=== PATIENT | male | born 1930 | race Caucasian/White ===

== ENCOUNTER 2017-12-20 15:23 | Inpatient (IN) | payer MEDICARE, OTHER ==
--- NOTE | 2017-12-20 16:46 | ED Physician Chart ---
ED Chief Complaint/HPI - Patient Information Date Seen:: 12/20/17 Time Seen:: 16:05 Chief Complaint:: anxiety agitation History of Present Illness:: 87 yr old male with anxiety increased agitation from a facility pt denies any complaints Allergies:: Allergies Allergy/AdvReac Type Severity Reaction Status Date / Time No Known Allergies Allergy Verified 12/20/17 16:01 Vitals:: Vital Signs - 8 hr 12/20/17 15:55 Temp 97.8 F HR 82 RR 16 BP 118/86 O2 Sat % 96 Historian:: Patient ED Review of Systems - Review of Systems General/Constitutional: No fever, No chills, No weight loss, No weakness, No diaphoresis, No edema, No loss of appetite Skin: No skin lesions, No rash, No bruising Head: No headache, No light-headedness Eyes: No loss of vision, No pain, No diplopia ENT: No earache, No nasal drainage, No sore throat, No tinnitus Neck: No neck pain, No swelling, No thyromegaly, No stiffness, No mass noted Cardio Vascular: No chest pain, No palpitations, No PND, No orthopnea, No edema Pulmonary: No SOB, No cough, No sputum, No wheezing GI: No nausea, No vomiting, No diarrhea, No pain, No melena, No hematochezia, No constipation, No hematemesis G/U: No dysuria, No frequency, No hematuria Musculoskeletal: No bone or joint pain, No back pain, No muscle pain Endocrine: No polyuria, No polydipsia Psychiatric: No prior psych history, No depression, Anxiety, No suicidal ideation Hematopoietic: No bruising, No lymphadenopathy Allergic/Immuno: No urticaria, No angioedema Neurological: No syncope, No focal symptoms, No weakness, No paresthesia, No headache, No seizure, No dizziness, No confusion, No vertigo ED Past Medical History - Past Medical History Past Medical History: No significant medical hx ED Physical Exam - Physical Examination General/Constitutional: Awake, Well-developed, well-nourished, Alert, No distress, GCS 15, Non-toxic appearing, Ambulatory Head: Atraumatic Eyes: Lids, conjuctiva normal, PERRL, EOMI Skin: Nl inspection, No rash, No skin lesions, No ecchymosis, Well hydrated, No lymphadenopathy ENMT: External ears, nose nl, Nasal exam nl, Lips, teeth, gums nl Neck: Nontender, Full ROM w/o pain, No JVD, No nuchal rigidity, No bruit, No mass, No stridor Respiratory: Nl effort/Exclusion, Clear to Auscultation, No Wheeze/Rhonchi/Rales Cardio Vascular: RRR, No murmur, gallop, rubs, NL S1 S2 GI: No tenderness/rebounding/guarding, No organomegaly, No hernia, Normal BS's, Nondistended, No mass/bruits, No McBurney tenderness : No CVA tenderness Extremities: No tenderness or effusion, Full ROM, normal strength in all extremities, No edema, Normal digits & nails Neuro/Psych: Alert/oriented, DTR's symmetric, Normal sensory exam, Normal motor strength, Judgement/insight normal, Mood normal, Normal gait, No focal deficits Misc: Normal back, No paraspinal tenderness ED Assessment - Assessment General Assessment: anxirty agitation ED Septic Shock - . Is Septic Shock (SBP<90, OR Lactate>4 mmol\L) present?: No - <6hrs of presentation: Vital Signs: Vital Signs - 8 hr 12/20/17 15:55 Temp 97.8 F HR 82 RR 16 BP 118/86 O2 Sat % 96 ED Reassessment (Disposition) - Diagnosis Diagnosis:: anxiety agitation - Patient Disposition Discharge/Transfer:: Acute Care w/in this hosp Condition at Disposition:: Stable
[2017-12-20 17:02] LABS: % MONOCYTES 6.7 % (2.0-10.0); % NEUTROPHILS 78.3 % (40.0-80.0); EOSINOPHILE ABSOLUTE 0.1 Th/cmm (0.1-0.4); HEMATOCRIT 38.7 % (41.0-60); HEMOGLOBIN 13.1 gm/dL (12-16); LYMPHOCYTE ABSOLUTE 0.9 Th/cmm (1.5-3.0); MEAN CELL VOLUME 95.6 fl (80-99); MEAN CORPUSCULAR HEMOGLOBIN 32.4 pg (27.0-31.0); MEAN CORPUSCULAR HGB CONC 33.9 pg (28.0-36.0); MEAN PLATELET VOLUME 6.4 fl; MONOCYTE ABSOLUTE 0.4 Th/cmm (0.3-1.0); NEUTROPHILE ABSOLUTE 5.1 Th/cmm (1.8-8.0); PLATELET COUNT 242 Th/cmm (150-400); RED BLOOD COUNT 4.05 Mil/cmm (3.80-5.80); RED CELL DISTRIBUTION WIDTH 14.3 % (11.5-20.0); WHITE BLOOD COUNT 6.5 Th/cmm (4.8-10.8)
[2017-12-20 17:18] LABS: ALB/GLOB RATIO 1.2 (1.0-1.8); ALBUMIN 3.7 gm/dL (4.2-5.5); ALKALINE PHOSPHATASE 70 U/L (34-104); BUN - UREA NITROGEN 21 mg/dL (7-25); CALCIUM SERUM 9.3 mg/dL (8.6-10.3); CARBON DIOXIDE 27.7 mEq/L (21.0-31.0); CHLORIDE 95 mEq/L (98-107); CREATININE - SERUM 1.1 mg/dL (0.7-1.3); GLUCOSE 102 mg/dL (70-105); POTASSIUM SERUM 3.7 mEq/L (3.5-5.1); SGOT 10 U/L (13-39); SGPT/ALT 5 U/L (7-52); SODIUM SERUM 132 mEq/L (136-145); TOTAL PROTEIN,SERUM 6.8 gm/dL (6.0-8.3)
[2017-12-20 17:41] LABS: URINE SOURCE CLEAN C
[2017-12-20 17:47] LABS: URINE BILIRUBIN NEGATIVE (NEGATIVE); URINE BLOOD NEGATIVE (NEGATIVE); URINE GLUCOSE (UA) NEGATIVE (NEGATIVE); URINE KETONE 15 mg/dL (NEGATIVE); URINE LEUKOCYTE ESTERASE SMALL (NEGATIVE); URINE MICROSCOPIC INDICATED? YES; URINE NITRATE POSITIVE (NEGATIVE); URINE PROTEIN NEGATIVE (NEGATIVE)
[2017-12-20 17:50] LABS: URINE CLARITY CLEAR (CLEAR); URINE COLOR YELLOW
[2017-12-20 17:57] LABS: URINE BACTERIA 1+ /hpf (NONE SEEN); URINE EPITHELIAL CELLS FEW /lpf (FEW); URINE RBC 0-2 /hpf (0-5)
[2017-12-20 18:15] LABS: AMPHETAMINE URINE NEGATIVE (NEGATIVE)
[2017-12-20 18:16] LABS: BARBITURATES URINE NEGATIVE (NEGATIVE); BENZODIAZEPINES QUAL URINE NEGATIVE (NEGATIVE); CANNABINOID THC NEGATIVE (NEGATIVE); COCAINE METABOLITE QUAL URINE NEGATIVE (NEGATIVE); METHADONE URINE NEGATIVE (NEGATIVE); METHAMPHETAMINES QUAL URINE NEGATIVE (NEGATIVE); OPIATES (MORPHINE) QUAL. URINE NEGATIVE (NEGATIVE); PHENCYCLIDINE (PCP) URINE NEGATIVE (NEGATIVE); TRICYCLICS (TCA) QUAL. URINE NEGATIVE (NEGATIVE)
[2017-12-20] MEDS ORDERED: Sodium Chloride 0.9% 1,000 ML IV ONE (19:34)
[2017-12-20] MEDS ORDERED: cefTRIAXone 2 GM in Sodium Chloride 0.9% 100 ML IV ONE (19:38)
[2017-12-20] MEDS ORDERED: Maalox 30 mL Cup PO PRN (23:48)
[2017-12-20] MEDS ORDERED: Magnesium Hydroxide (MOM) 30 mL UDC PO PRN (23:48)
[2017-12-20] MEDS ORDERED: Hydrocodone/APAP 5mg/325mg Tab PO PRN (23:54)
[2017-12-20 23:59] VITALS: BP 144/75
[2017-12-21] MEDS ORDERED: Non-Formulary Item 1 EA (Multivitamin [Multi-Vitamin Daily] 1 TAB) PO SCH (09:00)
--- NOTE | 2017-12-21 10:02 | History & Physical ---
ADMIT DATE: 12/21/2017 CHIEF COMPLAINT: Agitation. HISTORY OF PRESENT ILLNESS: This is an 87-year-old male who was admitted from a [facility] facility to the [facility] due to increase in agitation. REVIEW OF SYSTEMS: GENERAL: This is an 87-year-old male that appears as stated. Denies weight loss. Denies weakness. HEAD: Denies headache. Denies dizziness. EYES: Denies eye pain. Denies blurring of vision. NECK: Denies neck pain. Denies nuchal rigidity. CHEST: Denies chest pain. Denies palpitation. PULMONARY: Denies shortness of breath. Denies coughing. GASTROINTESTINAL: Denies abdominal pain. Denies diarrhea. Denies constipation. MUSCULOSKELETAL: Denies joint pain. Denies muscle pain. SOCIAL HISTORY: The patient lives in a [facility] facility prior to hospitalization. FAMILY HISTORY: Unremarkable. PAST SURGICAL HISTORY: Unremarkable. PAST MEDICAL HISTORY: Includes osteoarthritis, gastroesophageal reflux disease, iron deficiency anemia, hypertension, and osteoarthritis. PSYCHIATRIC HISTORY: Includes dementia. PHYSICAL EXAMINATION: VITAL SIGNS: Temperature 97.6, heart rate of 80, blood pressure 129/71, respirations of 19, and 98% on room air. HEENT: Head is atraumatic, normocephalic. Eyes: Bilateral conjunctivae are clear. Bilateral pupils are equally round and reactive. NECK: Supple. No JVD. CARDIOVASCULAR: S1 and S2, without murmur. PULMONARY: Clear to auscultation. GASTROINTESTINAL: Soft and nontender without guarding. Positive bowel sounds. MUSCULOSKELETAL: No clubbing. No cyanosis noted. ASSESSMENT: 1. Dementia. 2. Hypertension. 3. Gastroesophageal reflux disease. 4. Iron-deficiency anemia. PLAN: We will admit the patient to senior mental health unit. We will do medication reconciliation accordingly. We will follow up with the psychiatrist to monitor the patient's condition and behavior. Treatment plans were discussed with the patient's nurse. Treatment plans were discussed with Dr. March. JOB# [id number]
[2017-12-21] MEDS: Ferrous Sulfate 325 MG TAB PO SCH (10:09)
[2017-12-21] MEDS: Multivitamin Tab PO SCH (10:10)
--- NOTE | 2017-12-21 10:45 | Psychiatric Evaluation ---
DATE OF SERVICE: 12/20/2017 PSYCHIATRIC EVALUATION AND MENTAL STATUS EXAMINATION IDENTIFYING DATA: The patient is an 87-year-old male resident of [facility]. Information obtained by directly interviewing the patient as well as reviewing the admission papers and they are reliable. JUSTIFICATION OF HOSPITALIZATION: The patient is admitted here on a voluntary basis in view of his acute agitation, confusion, and disruptive behavior. CHIEF COMPLAINT: "I am the chosen one." HISTORY OF PRESENT ILLNESS: This is the first psychiatric hospitalization to [facility] for this patient who is reported to have been very agitated, confused, and disrupting. The patient has been referred here from the [facility] for stabilization. Review of the chart indicated that the patient has been diagnosed to have the weakness of the muscles, hypoosmolality, and hyponatremia at one time and the patient is getting easily agitated and hence the patient has been referred over here. I did the interview the patient. 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 The patient's insight is noted to be very limited. Sleep and appetite prior to the hospitalization are very poor. PAST PSYCHIATRIC HISTORY: The patient denies any prior psychiatric hospitalizations or treatments. MEDICAL HISTORY: Physical examination is requested by Dr. Joaquim Torre. LEGAL PROBLEMS: None at this time. STRENGTH AND ASSETS: The patient is motivated. MENTAL STATUS EXAMINATION: The patient is an 87-year-old, looking his stated age, cooperative. Eye contact is fair. Mood is noted to be elated. Affect is labile. Insight and judgment at this time are noted to be impaired. Impulse control seems to be limited. Coping skills are noted to be limited. The patient has been having difficult time to cope with the stress. Attention span and concentration are noted to be poor. Short term and terminal make up operator memory appeared to be fair, but the patient has been presenting with grandiose delusions and going off on a tangent. DIAGNOSTIC IMPRESSION: AXIS I: A. Psychosis, not otherwise specified. B. Rule out bipolar disorder. C. Dementia and behavioral change secondary to dementia. AXIS II: None. AXIS III: As per Dr. March. IMMEDIATE TREATMENT PLAN: The patient is going to be observed on inpatient unit, provided with supportive psychotherapy. The patient is going to be closely monitored and encouraged to verbalize the concerns rather than to act out. The patient is going to be discontinued off of the Lexapro gradually and the patient is going to be placed on the Seroquel 12.5 mg, which is going to be gradually increased. ESTIMATED LENGTH OF STAY: 3-5 days. DISCHARGE CRITERIA: When he no longer a threat to self or others and be able to cope up with the stress. [facility]# [id number]
[2017-12-22] MEDS: Multivitamin Tab PO SCH (09:17)
[2017-12-22] MEDS: Ferrous Sulfate 325 MG TAB PO SCH (09:17)
--- NOTE | 2017-12-22 16:40 | Progress Notes ---
DATE: 12/22/2017 SUBJECTIVE: Staff was spoken to. The patient is interviewed. Mood is noted to be irritable. Affect is constricted. Insight and judgment are impaired. Impulse control is noted to be poor. The patient is refusing to comply with the medications. The patient has been very demanding and insight is noted to be very limited. ASSESSMENT: The patient is still impulsive and psychotic. PLAN: To continue the patient with the supportive therapy, encouraged the patient to verbalize the concerns rather than to act out. [facility]# [id number]
--- NOTE | 2017-12-23 16:03 | General Progress Note ---
Subjective - Review of Systems Events since last encounter: awake in no distress Objective - Results Result Diagrams: 12/20/17 16:53 12/20/17 16:53 Recent Labs: Laboratory Last Values WBC 6.5 Th/cmm (4.8-10.8) 12/20/17 16:53 RBC 4.05 Mil/cmm (3.80-5.80) 12/20/17 16:53 Hgb 13.1 gm/dL (12-16) 12/20/17 16:53 Hct 38.7 % (41.0-60) L 12/20/17 16:53 MCV 95.6 fl (80-99) 12/20/17 16:53 MCH 32.4 pg (27.0-31.0) H 12/20/17 16:53 MCHC Differential 33.9 pg (28.0-36.0) 12/20/17 16:53 RDW 14.3 % (11.5-20.0) 12/20/17 16:53 Plt Count 242 Th/cmm (150-400) 12/20/17 16:53 MPV 6.4 fl 12/20/17 16:53 Neutrophils % 78.3 % (40.0-80.0) 12/20/17 16:53 Lymphocytes % 14.0 % (20.0-50.0) L 12/20/17 16:53 Monocytes % 6.7 % (2.0-10.0) 12/20/17 16:53 Eosinophils % 1.0 % (0.0-5.0) 12/20/17 16:53 Basophils % 0.0 % (0.0-2.0) 12/20/17 16:53 Sodium 132 mEq/L (136-145) L 12/20/17 16:53 Potassium 3.7 mEq/L (3.5-5.1) 12/20/17 16:53 Chloride 95 mEq/L (98-107) L 12/20/17 16:53 Carbon Dioxide 27.7 mEq/L (21.0-31.0) 12/20/17 16:53 Anion Gap 13.0 (7.0-16.0) 12/20/17 16:53 BUN 21 mg/dL (7-25) 12/20/17 16:53 Creatinine 1.1 mg/dL (0.7-1.3) 12/20/17 16:53 Est GFR ( Amer) TNP 12/20/17 16:53 Est GFR (Non-Af Amer) TNP 12/20/17 16:53 BUN/Creatinine Ratio 19.1 12/20/17 16:53 Glucose 102 mg/dL (70-105) 12/20/17 16:53 Calcium 9.3 mg/dL (8.6-10.3) 12/20/17 16:53 Total Bilirubin 1.0 mg/dL (0.3-1.0) 12/20/17 16:53 AST 10 U/L (13-39) L 12/20/17 16:53 ALT 5 U/L (7-52) L 12/20/17 16:53 Alkaline Phosphatase 70 U/L (34-104) 12/20/17 16:53 Total Protein 6.8 gm/dL (6.0-8.3) 12/20/17 16:53 Albumin 3.7 gm/dL (4.2-5.5) L 12/20/17 16:53 Globulin 3.1 gm/dL 12/20/17 16:53 Albumin/Globulin Ratio 1.2 (1.0-1.8) 12/20/17 16:53 Urine Source CLEAN C 12/20/17 17:20 Urine Color YELLOW 12/20/17 17:20 Urine Clarity CLEAR (CLEAR) 12/20/17 17:20 Urine pH 6.0 (4.6 - 8.0) 12/20/17 17:20 Ur Specific [place] 1.025 (1.005-1.030) 12/20/17 17:20 Urine Protein NEGATIVE mg/dL (NEGATIVE) 12/20/17 17:20 Urine Glucose (UA) NEGATIVE mg/dL (NEGATIVE) 12/20/17 17:20 Urine Ketones 15 mg/dL (NEGATIVE) H 12/20/17 17:20 Urine Blood NEGATIVE (NEGATIVE) 12/20/17 17:20 Urine Nitrate POSITIVE (NEGATIVE) H 12/20/17 17:20 Urine Bilirubin NEGATIVE (NEGATIVE) 12/20/17 17:20 Urine Urobilinogen 2.0 E.U./dL (0.2 - 1.0) 12/20/17 17:20 Ur Leukocyte Esterase SMALL (NEGATIVE) H 12/20/17 17:20 Urine RBC 0-2 /hpf (0-5) H 12/20/17 17:20 Urine WBC 6-10 /hpf (0-5) 12/20/17 17:20 Ur Epithelial Cells FEW /lpf (FEW) 12/20/17 17:20 Urine Bacteria 1+ /hpf (NONE SEEN) H 12/20/17 17:20 Urine Mucus FEW /lpf (FEW) 12/20/17 17:20 Urine Opiates Screen NEGATIVE (NEGATIVE) 12/20/17 17:20 Urine Methadone Screen NEGATIVE (NEGATIVE) 12/20/17 17:20 Ur Barbiturates Screen NEGATIVE (NEGATIVE) 12/20/17 17:20 Ur Tricyclics Screen NEGATIVE (NEGATIVE) 12/20/17 17:20 Ur Phencyclidine Scrn NEGATIVE (NEGATIVE) 12/20/17 17:20 Amphetamines Screen NEGATIVE (NEGATIVE) 12/20/17 17:20 U Methamphetamines Scrn NEGATIVE (NEGATIVE) 12/20/17 17:20 U Benzodiazepines Scrn NEGATIVE (NEGATIVE) 12/20/17 17:20 U Cocaine Metab Screen NEGATIVE (NEGATIVE) 12/20/17 17:20 U Cannabinoids Screen NEGATIVE (NEGATIVE) 12/20/17 17:20 - Physical Exam Vitals and I&O: Vital Signs Temp 97.2 F 12/23/17 15:19 Pulse 73 12/23/17 15:19 Resp 20 12/23/17 15:19 BP 104/65 12/23/17 15:19 Pulse Ox 97 12/23/17 15:19 Intake & Output 12/22/17 12/23/17 12/23/17 18:59 06:59 18:59 Intake Total 1750 Balance 1750 Intake: Oral 1750 Other: # Voids 3 # Bowel Movements 1 Active Medications: Current Medications Acetaminophen (Tylenol) 650 mg PO Q4HR PRN PRN Reason: Mild Pain / Temp above 100 Stop: 02/18/18 23:47 Acetaminophen/Hydrocodone Bitart ([place] 5mg/325mg) 1 tab PO Q6H PRN PRN Reason: Pain (Moderate) Stop: 02/18/18 23:53 Al Hydrox/Mg Hydrox/Simethicone (Maalox) 30 ml PO Q4HR PRN PRN Reason: GI DISTRESS Stop: 02/18/18 23:47 Aspirin (Ecotrin) 81 mg PO DAILY [facility] Stop: 02/19/18 08:59 Last Admin: 12/22/17 09:16 Dose: Not Given Bisacodyl (Dulcolax 10 Mg Supp) 10 mg RC Q72HR PRN PRN Reason: Constipation Stop: 02/18/18 23:53 Docusate Sodium (Colace) 250 mg PO DAILY [facility] Stop: 02/19/18 08:59 Last Admin: 12/22/17 09:17 Dose: Not Given Donepezil HCl (Aricept) 10 mg PO HS [facility] Stop: 02/19/18 20:59 Last Admin: 12/22/17 21:07 Dose: 10 mg Escitalopram Oxalate (Lexapro) 5 mg PO DAILY [facility]; Protocol Stop: 02/19/18 08:59 Last Admin: 12/22/17 09:17 Dose: Not Given Famotidine (Pepcid) 40 mg PO QAM [facility] Stop: 02/19/18 08:59 Last Admin: 12/22/17 09:17 Dose: Not Given Ferrous Sulfate (Iron) 325 mg PO DAILY [facility] Stop: 02/19/18 08:59 Last Admin: 12/22/17 09:17 Dose: Not Given Hydrochlorothiazide (Hctz) 25 mg PO QAM [facility] Stop: 02/19/18 08:59 Last Admin: 12/22/17 09:17 Dose: Not Given Lorazepam (Ativan) 0.5 mg PO Q4HR PRN; Protocol PRN Reason: Anxiety Stop: 01/19/18 23:47 Last Admin: 12/22/17 21:22 Dose: 0.5 mg Magnesium Hydroxide (Milk Of Magnesia) 30 ml PO HS PRN PRN Reason: Constipation Memantine (Namenda) 10 mg PO BID [facility] Stop: 02/19/18 08:59 Last Admin: 12/22/17 18:01 Dose: Not Given Multivitamins/Vitamin C (Theragran) 1 tab PO DAILY [facility] Stop: 02/19/18 08:59 Last Admin: 12/22/17 09:17 Dose: Not Given Quetiapine Fumarate (Seroquel) 25 mg PO BID [facility]; Protocol Stop: 02/19/18 08:59 Last Admin: 12/22/17 18:01 Dose: Not Given Trazodone HCl (Desyrel) 25 mg PO HS [facility]ARITZA; Protocol Stop: 02/19/18 20:59 Last Admin: 12/22/17 21:07 Dose: 25 mg Zolpidem Tartrate (Ambien) 5 mg PO HS PRN PRN Reason: Insomnia Stop: 02/18/18 23:47
--- NOTE | 2017-12-23 21:12 | Consultation ---
DATE OF CONSULTATION: 12/23/2017 REFERRING PHYSICIAN: Kathrine Moore MD. TYPE OF CONSULTATION: Psychology. HISTORY OF PRESENT ILLNESS: The patient is an 87-year-old male. The patient is a resident of [facility]. The following is by review of the medical record and by patient self-report. The patient is being admitted due to acute agitation, confusion and disruptive behavior. The staff at the patient's facility report that he had become very agitated, confused, and disruptive towards the staff as well as other residents. The patient presents as being confused but verbally assertive. 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 The patient went on to state that he speaks 6 different languages. The patient seemed to perseverate on grandiose type of thoughts and was cognitively un-redirectable at times due to this perseveration. However, the patient was willing to continue with the clinical interview. The patient denied any suicidal ideation, plan or intention. PAST MEDICAL HISTORY: Please see history and physical by Dr. March. PAST PSYCHIATRIC HISTORY: The record indicates no prior psychiatric hospitalizations or treatments. Complete information is unavailable at the time of this clinical interview. SUBSTANCE ABUSE HISTORY: The patient denied any history. PSYCHOSOCIAL HISTORY: The patient is a resident of [facility]. The patient stated no specific buddhism affiliation. 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 The patient was not specific as to what type of medicine he practiced. The patient states that he completed college as well as post-graduate work. The patient stated that he has a relationship with the [place] and he is a devout [employer]. The patient denied any history of physical or sexual abuse. The patient denied any current legal problems. The patient reported no family support. MENTAL STATUS EXAMINATION: The patient appears to be his stated age. The patient's attitude is superficially cooperative. Eye contact is fair. Speech is spontaneous. Mood is stable, but labile at times; there seems to be mood fluctuations. Affect is animated. Thought process seems to be tangential at times. The patient denied any auditory or visual hallucinations. The patient denies any suicidal ideation, plan or intention. There are possible delusions present i.e., grandiose type. This needs further evaluation. The patient's behavior presents as entitled and demanding towards staff according to the nursing staff on the unit. Impulse control is limited. Concentration is fair to poor. The patient was able to repeat 3 items given to him the first time. The patient was able to recall 2/3 items after several minutes. Immediate and short term memory seemed to be fair; long-term memory needs further evaluation. The patient's sensorium is alert and oriented x 3. The patient did not participate in the interpretation of proverbs by choice. Insight is poor. Judgment is poor. DIAGNOSTIC IMPRESSION: AXIS I: 1. Psychosis, not otherwise specified. 2. Rule out bipolar disorder. 3. Dementia with behavioral disturbance. AXIS II: Deferred. AXIS III: Per Dr. March. TREATMENT PLAN: The patient has been seen by Dr. Moore for psychiatric evaluation and for the management of the patient's psychotropic medications. We will provide supportive psychotherapy to include reality orientation, reality differentiation and reality integration. We will provide coping strategies for phase of life issues. We will provide motivational enhancement for the patient to become compliant and stay compliant with all aspects of his care and treatment. We will encourage the patient to be able to verbally contract for safety including no harm to others. We will encourage the patient to be able to demonstrate emotional and self-regulation prior to discharge. We will provide stress management skills to increase the patient's frustration tolerance. According to the admitting Psychiatrist, the patient is being discontinued off of Lexapro gradually and will be placed on Seroquel. Thank you Dr. Moore for this consult and the opportunity to participate with you in this patient's care. JOB# [id number]
--- NOTE | 2017-12-24 02:35 | Progress Notes ---
DATE: 12/23/2017 PSYCHIATRIC PROGRESS NOTE SUBJECTIVE: Staff was spoken to. The patient is interviewed. Mood is noted to be irritable. Affect is constricted. Insight and judgment are noted to be still impaired. Impulse control is noted to be limited. 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 The patient's coping skills at this time are noted to be impaired. Impulse control is noted to be very poor. Coping skills are noted to be poor. The patient has been having difficult time to cope with the stress and the patient is going on a tangent. The patient is currently on trazodone, Ambien, and Seroquel and decided to discontinue the trazodone tonight and continue the patient with Seroquel and Ambien and follow up with the supportive therapy. ASSESSMENT: The patient is still psychotic and impulsive. PLAN: To continue the patient with the supportive therapy and follow. JOB# [id number]
[2017-12-24] MEDS: Ferrous Sulfate 325 MG TAB PO SCH ×2 (08:23→19:29)
[2017-12-24] MEDS: Multivitamin Tab PO SCH ×2 (08:25→19:31)
--- NOTE | 2017-12-25 01:03 | Progress Notes ---
DATE: 12/24/2017 PSYCHIATRIC PROGRESS NOTE SUBJECTIVE: Staff was spoken to. The patient is interviewed. Mood is noted to be irritable. Affect is constricted. Coping skills are noted to be still poor. The patient has grandiose delusions. The patient is talking about the languages that he speaks and the things that he needs to do in the [place]. The patient has no insight into his illness. ASSESSMENT: The patient is still grossly psychotic. PLAN: To continue the patient with supportive therapy. I encouraged the patient to verbalize the concerns rather than to act out. The patient is reluctantly willing to accept the medications. JOB# [id number]
--- NOTE | 2017-12-25 09:02 | General Progress Note ---
Subjective - Review of Systems Events since last encounter: patient still psychotic no fever Objective - Results Result Diagrams: 12/20/17 16:53 12/20/17 16:53 Recent Labs: Laboratory Last Values WBC 6.5 Th/cmm (4.8-10.8) 12/20/17 16:53 RBC 4.05 Mil/cmm (3.80-5.80) 12/20/17 16:53 Hgb 13.1 gm/dL (12-16) 12/20/17 16:53 Hct 38.7 % (41.0-60) L 12/20/17 16:53 MCV 95.6 fl (80-99) 12/20/17 16:53 MCH 32.4 pg (27.0-31.0) H 12/20/17 16:53 MCHC Differential 33.9 pg (28.0-36.0) 12/20/17 16:53 RDW 14.3 % (11.5-20.0) 12/20/17 16:53 Plt Count 242 Th/cmm (150-400) 12/20/17 16:53 MPV 6.4 fl 12/20/17 16:53 Neutrophils % 78.3 % (40.0-80.0) 12/20/17 16:53 Lymphocytes % 14.0 % (20.0-50.0) L 12/20/17 16:53 Monocytes % 6.7 % (2.0-10.0) 12/20/17 16:53 Eosinophils % 1.0 % (0.0-5.0) 12/20/17 16:53 Basophils % 0.0 % (0.0-2.0) 12/20/17 16:53 Sodium 132 mEq/L (136-145) L 12/20/17 16:53 Potassium 3.7 mEq/L (3.5-5.1) 12/20/17 16:53 Chloride 95 mEq/L (98-107) L 12/20/17 16:53 Carbon Dioxide 27.7 mEq/L (21.0-31.0) 12/20/17 16:53 Anion Gap 13.0 (7.0-16.0) 12/20/17 16:53 BUN 21 mg/dL (7-25) 12/20/17 16:53 Creatinine 1.1 mg/dL (0.7-1.3) 12/20/17 16:53 Est GFR ( Amer) TNP 12/20/17 16:53 Est GFR (Non-Af Amer) TNP 12/20/17 16:53 BUN/Creatinine Ratio 19.1 12/20/17 16:53 Glucose 102 mg/dL (70-105) 12/20/17 16:53 Calcium 9.3 mg/dL (8.6-10.3) 12/20/17 16:53 Total Bilirubin 1.0 mg/dL (0.3-1.0) 12/20/17 16:53 AST 10 U/L (13-39) L 12/20/17 16:53 ALT 5 U/L (7-52) L 12/20/17 16:53 Alkaline Phosphatase 70 U/L (34-104) 12/20/17 16:53 Total Protein 6.8 gm/dL (6.0-8.3) 12/20/17 16:53 Albumin 3.7 gm/dL (4.2-5.5) L 12/20/17 16:53 Globulin 3.1 gm/dL 12/20/17 16:53 Albumin/Globulin Ratio 1.2 (1.0-1.8) 12/20/17 16:53 Urine Source CLEAN C 12/20/17 17:20 Urine Color YELLOW 12/20/17 17:20 Urine Clarity CLEAR (CLEAR) 12/20/17 17:20 Urine pH 6.0 (4.6 - 8.0) 12/20/17 17:20 Ur Specific [place] 1.025 (1.005-1.030) 12/20/17 17:20 Urine Protein NEGATIVE mg/dL (NEGATIVE) 12/20/17 17:20 Urine Glucose (UA) NEGATIVE mg/dL (NEGATIVE) 12/20/17 17:20 Urine Ketones 15 mg/dL (NEGATIVE) H 12/20/17 17:20 Urine Blood NEGATIVE (NEGATIVE) 12/20/17 17:20 Urine Nitrate POSITIVE (NEGATIVE) H 12/20/17 17:20 Urine Bilirubin NEGATIVE (NEGATIVE) 12/20/17 17:20 Urine Urobilinogen 2.0 E.U./dL (0.2 - 1.0) 12/20/17 17:20 Ur Leukocyte Esterase SMALL (NEGATIVE) H 12/20/17 17:20 Urine RBC 0-2 /hpf (0-5) H 12/20/17 17:20 Urine WBC 6-10 /hpf (0-5) 12/20/17 17:20 Ur Epithelial Cells FEW /lpf (FEW) 12/20/17 17:20 Urine Bacteria 1+ /hpf (NONE SEEN) H 12/20/17 17:20 Urine Mucus FEW /lpf (FEW) 12/20/17 17:20 Urine Opiates Screen NEGATIVE (NEGATIVE) 12/20/17 17:20 Urine Methadone Screen NEGATIVE (NEGATIVE) 12/20/17 17:20 Ur Barbiturates Screen NEGATIVE (NEGATIVE) 12/20/17 17:20 Ur Tricyclics Screen NEGATIVE (NEGATIVE) 12/20/17 17:20 Ur Phencyclidine Scrn NEGATIVE (NEGATIVE) 12/20/17 17:20 Amphetamines Screen NEGATIVE (NEGATIVE) 12/20/17 17:20 U Methamphetamines Scrn NEGATIVE (NEGATIVE) 12/20/17 17:20 U Benzodiazepines Scrn NEGATIVE (NEGATIVE) 12/20/17 17:20 U Cocaine Metab Screen NEGATIVE (NEGATIVE) 12/20/17 17:20 U Cannabinoids Screen NEGATIVE (NEGATIVE) 12/20/17 17:20 - Physical Exam Vitals and I&O: Vital Signs Temp 97.8 F 12/25/17 05:01 Pulse 61 12/25/17 05:01 Resp 19 12/25/17 05:01 BP 120/74 12/25/17 05:01 Pulse Ox 98 12/25/17 05:01 Intake & Output 12/24/17 12/25/17 12/25/17 18:59 06:59 18:59 Intake Total 500 Balance 500 Intake: Oral 500 Other: # Voids 2 # Bowel Movements 1 Active Medications: Current Medications Acetaminophen (Tylenol) 650 mg PO Q4HR PRN PRN Reason: Mild Pain / Temp above 100 Stop: 02/18/18 23:47 Acetaminophen/Hydrocodone Bitart ([place] 5mg/325mg) 1 tab PO Q6H PRN PRN Reason: Pain (Moderate) Stop: 02/18/18 23:53 Al Hydrox/Mg Hydrox/Simethicone (Maalox) 30 ml PO Q4HR PRN PRN Reason: GI DISTRESS Stop: 02/18/18 23:47 Aspirin (Ecotrin) 81 mg PO DAILY COUNT INCLUDES [facility] Stop: 02/19/18 08:59 Last Admin: 12/24/17 19:28 Dose: Not Given Bisacodyl (Dulcolax 10 Mg Supp) 10 mg RC Q72HR PRN PRN Reason: Constipation Stop: 02/18/18 23:53 Docusate Sodium (Colace) 250 mg PO DAILY COUNT [facility]CLUDES [facility] Stop: 02/19/18 08:59 Last Admin: 12/24/17 19:28 Dose: Not Given Donepezil HCl (Aricept) 10 mg PO HS COUNT INCLUDES [facility] Stop: 02/19/18 20:59 Last Admin: 12/24/17 21:24 Dose: Not Given Escitalopram Oxalate (Lexapro) 5 mg PO DAILY COUNT [facility]CLUDES THE [facility]; Protocol Stop: 02/19/18 08:59 Last Admin: 12/24/17 19:29 Dose: Not Given Famotidine (Pepcid) 40 mg PO QAM COUNT INCLUDES THE [facility] Stop: 02/19/18 08:59 Last Admin: 12/24/17 19:29 Dose: Not Given Ferrous Sulfate (Iron) 325 mg PO DAILY COUNT [facility]CLUDES [facility] Stop: 02/19/18 08:59 Last Admin: 12/24/17 19:29 Dose: Not Given Hydrochlorothiazide (Hctz) 25 mg PO QAM COUNT [facility]CLUDES [facility] Stop: 02/19/18 08:59 Last Admin: 12/24/17 19:30 Dose: Not Given Lorazepam (Ativan) 0.5 mg PO Q4HR PRN; Protocol PRN Reason: Anxiety Stop: 01/19/18 23:47 Last Admin: 12/22/17 21:22 Dose: 0.5 mg Magnesium Hydroxide (Milk Of Magnesia) 30 ml PO HS PRN PRN Reason: Constipation Memantine (Namenda) 10 mg PO BID COUNT [facility]CLUDES [facility] Stop: 02/19/18 08:59 Last Admin: 12/24/17 19:30 Dose: Not Given Multivitamins/Vitamin C (Theragran) 1 tab PO DAILY COUNT INCLUDES THE [facility] Stop: 02/19/18 08:59 Last Admin: 12/24/17 19:31 Dose: Not Given Quetiapine Fumarate (Seroquel) 25 mg PO BID COUNT [facility]CLUDES THE [facility]; Protocol Stop: 02/19/18 08:59 Last Admin: 12/24/17 19:28 Dose: Not Given Zolpidem Tartrate (Ambien) 5 mg PO HS PRN PRN Reason: Insomnia Stop: 02/18/18 23:47 Nutritional Asmnt/Malnutr-PDOC - Dietary Evaluation Malnutrition Findings (Please click <Entered> for more info): Nutritional Asmnt/Malnutrition Start: 12/24/17 15: 09 Text: Status: Complete Freq: Protocol: Document 12/24/17 15:09 LCHENG (Rec: 12/24/17 15:15 [email or web address] [id number]) Nutritional Asmnt/Malnutrition Patient General Information Nutritional Screening Moderate Risk Diagnosis psychosis NOS Pertinent Medical Hx/Surgical Hx OA, GERD, iron deficiency anemia, HTN Subjective Information Pt seen sleeping in bed at time of visit. Per EMR, PO intake 50-75%. Current Diet Order/ Nutrition Support regular, ayse finely chopped Pertinent Medications coace, pepcid, iron, theragran , seroquel Pertinent Labs 12/20 Na 132, Cl 95, Alb 3.7 Nutritional Hx/Data Height 1.8 m Height (Calculated Centimeters) 180.3 Current Weight (lbs) 83.915 kg Weight (Calculated Kilograms) 83.9 Weight (Calculated Grams) 19574.6 [place] Body Weight 172 Body Mass Index (BMI) 25.7 GI Symptoms GI Symptoms None Last BM 12/22 Difficult in: None Skin Integrity/Comment: intact Current %PO Fair (50-74%) Estimated Nutritional Goals Calories/Kcals/Kg 23-27 Kcals Calculated 9655-3561 Protein g/k.8 Protein Calculated 67 Fluid: ml 1932-2268ml (1ml/kcal) Nutritional Problem 1. Problem Problem altered nutrition related labs Etiology electrolytes imbalance Signs/Symptoms: Na 132, Cl 95 Malnutrition Alert Is there a minimum of two criteria No selected? Query Text:Check all the applicable criteria. A minimum of two criteria are recommended for diagnosis of either severe or non-severe malnutrition. Malnutrition Related to Morbid Obesity Malnutrition related to morbid obesity No Intervention/Recommendation Comments 1. Continue with current diet as ordered. Assist pt with meals as needed and encourage oral intake. 2. Monitor PO intake, wt, labs and skin integrity 3. F/U as low risk in 7 days, 12/31, PO check 12/27 Expected Outcomes/Goals Expected Outcomes/Goals 1. PO intake to meet at least 75% of nutritional needs. 2. Wt stability, skin to remain intact, labs to approach WNL.
[2017-12-25] MEDS: Ferrous Sulfate 325 MG TAB PO SCH (09:12)
[2017-12-25] MEDS: Multivitamin Tab PO SCH (09:12)
--- NOTE | 2017-12-26 01:58 | Progress Notes ---
DATE: 12/25/2017 SUBJECTIVE: Staff was spoken to. The patient is interviewed. Mood is noted to be irritable. Affect is constricted. Insight and judgment at this time are noted to be impaired. Impulse control is noted to be limited. Coping skills are noted to be limited. The patient has been having difficult time to cope with the stress. The patient is currently on 25 mg twice a day of the Seroquel and has been able to tolerate. No side effects to the medications are noted at this time. ASSESSMENT: The patient is still grossly psychotic and impulsive and has been displaying grandiose delusions. PLAN: To continue the patient with the supportive therapy and followup. JOB# [id number]
[2017-12-26] MEDS: Multivitamin Tab PO SCH (09:15)
[2017-12-26] MEDS: Ferrous Sulfate 325 MG TAB PO SCH (09:15)
--- NOTE | 2017-12-26 15:53 | General Progress Note ---
Subjective - Review of Systems Subjective: patient is agitated, NAD Objective - Results Result Diagrams: 12/20/17 16:53 12/20/17 16:53 Recent Labs: Laboratory Last Values WBC 6.5 Th/cmm (4.8-10.8) 12/20/17 16:53 RBC 4.05 Mil/cmm (3.80-5.80) 12/20/17 16:53 Hgb 13.1 gm/dL (12-16) 12/20/17 16:53 Hct 38.7 % (41.0-60) L 12/20/17 16:53 MCV 95.6 fl (80-99) 12/20/17 16:53 MCH 32.4 pg (27.0-31.0) H 12/20/17 16:53 MCHC Differential 33.9 pg (28.0-36.0) 12/20/17 16:53 RDW 14.3 % (11.5-20.0) 12/20/17 16:53 Plt Count 242 Th/cmm (150-400) 12/20/17 16:53 MPV 6.4 fl 12/20/17 16:53 Neutrophils % 78.3 % (40.0-80.0) 12/20/17 16:53 Lymphocytes % 14.0 % (20.0-50.0) L 12/20/17 16:53 Monocytes % 6.7 % (2.0-10.0) 12/20/17 16:53 Eosinophils % 1.0 % (0.0-5.0) 12/20/17 16:53 Basophils % 0.0 % (0.0-2.0) 12/20/17 16:53 Sodium 132 mEq/L (136-145) L 12/20/17 16:53 Potassium 3.7 mEq/L (3.5-5.1) 12/20/17 16:53 Chloride 95 mEq/L (98-107) L 12/20/17 16:53 Carbon Dioxide 27.7 mEq/L (21.0-31.0) 12/20/17 16:53 Anion Gap 13.0 (7.0-16.0) 12/20/17 16:53 BUN 21 mg/dL (7-25) 12/20/17 16:53 Creatinine 1.1 mg/dL (0.7-1.3) 12/20/17 16:53 Est GFR ( Amer) TNP 12/20/17 16:53 Est GFR (Non-Af Amer) TNP 12/20/17 16:53 BUN/Creatinine Ratio 19.1 12/20/17 16:53 Glucose 102 mg/dL (70-105) 12/20/17 16:53 Calcium 9.3 mg/dL (8.6-10.3) 12/20/17 16:53 Total Bilirubin 1.0 mg/dL (0.3-1.0) 12/20/17 16:53 AST 10 U/L (13-39) L 12/20/17 16:53 ALT 5 U/L (7-52) L 12/20/17 16:53 Alkaline Phosphatase 70 U/L (34-104) 12/20/17 16:53 Total Protein 6.8 gm/dL (6.0-8.3) 12/20/17 16:53 Albumin 3.7 gm/dL (4.2-5.5) L 12/20/17 16:53 Globulin 3.1 gm/dL 12/20/17 16:53 Albumin/Globulin Ratio 1.2 (1.0-1.8) 12/20/17 16:53 Urine Source CLEAN C 12/20/17 17:20 Urine Color YELLOW 12/20/17 17:20 Urine Clarity CLEAR (CLEAR) 12/20/17 17:20 Urine pH 6.0 (4.6 - 8.0) 12/20/17 17:20 Ur Specific [place] 1.025 (1.005-1.030) 12/20/17 17:20 Urine Protein NEGATIVE mg/dL (NEGATIVE) 12/20/17 17:20 Urine Glucose (UA) NEGATIVE mg/dL (NEGATIVE) 12/20/17 17:20 Urine Ketones 15 mg/dL (NEGATIVE) H 12/20/17 17:20 Urine Blood NEGATIVE (NEGATIVE) 12/20/17 17:20 Urine Nitrate POSITIVE (NEGATIVE) H 12/20/17 17:20 Urine Bilirubin NEGATIVE (NEGATIVE) 12/20/17 17:20 Urine Urobilinogen 2.0 E.U./dL (0.2 - 1.0) 12/20/17 17:20 Ur Leukocyte Esterase SMALL (NEGATIVE) H 12/20/17 17:20 Urine RBC 0-2 /hpf (0-5) H 12/20/17 17:20 Urine WBC 6-10 /hpf (0-5) 12/20/17 17:20 Ur Epithelial Cells FEW /lpf (FEW) 12/20/17 17:20 Urine Bacteria 1+ /hpf (NONE SEEN) H 12/20/17 17:20 Urine Mucus FEW /lpf (FEW) 12/20/17 17:20 Urine Opiates Screen NEGATIVE (NEGATIVE) 12/20/17 17:20 Urine Methadone Screen NEGATIVE (NEGATIVE) 12/20/17 17:20 Ur Barbiturates Screen NEGATIVE (NEGATIVE) 12/20/17 17:20 Ur Tricyclics Screen NEGATIVE (NEGATIVE) 12/20/17 17:20 Ur Phencyclidine Scrn NEGATIVE (NEGATIVE) 12/20/17 17:20 Amphetamines Screen NEGATIVE (NEGATIVE) 12/20/17 17:20 U Methamphetamines Scrn NEGATIVE (NEGATIVE) 12/20/17 17:20 U Benzodiazepines Scrn NEGATIVE (NEGATIVE) 12/20/17 17:20 U Cocaine Metab Screen NEGATIVE (NEGATIVE) 12/20/17 17:20 U Cannabinoids Screen NEGATIVE (NEGATIVE) 12/20/17 17:20 - Physical Exam Vitals and I&O: Vital Signs Temp 98.2 F 12/26/17 05:54 Pulse 81 12/26/17 05:54 Resp 18 12/26/17 05:54 BP 120/78 12/26/17 05:54 Pulse Ox 98 12/26/17 05:54 Intake & Output 12/25/17 12/26/17 12/26/17 18:59 06:59 18:59 Intake Total 120 Balance 120 Intake: Oral 120 Other: # Voids 3 # Bowel Movements 1 Active Medications: Current Medications Acetaminophen (Tylenol) 650 mg PO Q4HR PRN PRN Reason: Mild Pain / Temp above 100 Stop: 02/18/18 23:47 Acetaminophen/Hydrocodone Bitart ([place] 5mg/325mg) 1 tab PO Q6H PRN PRN Reason: Pain (Moderate) Stop: 02/18/18 23:53 Al Hydrox/Mg Hydrox/Simethicone (Maalox) 30 ml PO Q4HR PRN PRN Reason: GI DISTRESS Stop: 02/18/18 23:47 Aspirin (Ecotrin) 81 mg PO DAILY [facility] Stop: 02/19/18 08:59 Last Admin: 12/26/17 09:15 Dose: Not Given Bisacodyl (Dulcolax 10 Mg Supp) 10 mg RC Q72HR PRN PRN Reason: Constipation Stop: 02/18/18 23:53 Docusate Sodium (Colace) 250 mg PO DAILY [facility] Stop: 02/19/18 08:59 Last Admin: 12/26/17 09:15 Dose: Not Given Donepezil HCl (Aricept) 10 mg PO HS [facility] Stop: 02/19/18 20:59 Last Admin: 12/25/17 21:07 Dose: 10 mg Escitalopram Oxalate (Lexapro) 5 mg PO DAILY [facility]; Protocol Stop: 02/19/18 08:59 Last Admin: 12/26/17 09:15 Dose: Not Given Famotidine (Pepcid) 40 mg PO QAM [facility] Stop: 02/19/18 08:59 Last Admin: 12/26/17 09:15 Dose: Not Given Ferrous Sulfate (Iron) 325 mg PO DAILY [facility] Stop: 02/19/18 08:59 Last Admin: 12/26/17 09:15 Dose: Not Given Hydrochlorothiazide (Hctz) 25 mg PO QAM [facility] Stop: 02/19/18 08:59 Last Admin: 12/26/17 09:15 Dose: Not Given Lorazepam (Ativan) 0.5 mg PO Q4HR PRN; Protocol PRN Reason: Anxiety Stop: 01/19/18 23:47 Last Admin: 12/22/17 21:22 Dose: 0.5 mg Magnesium Hydroxide (Milk Of Magnesia) 30 ml PO HS PRN PRN Reason: Constipation Memantine (Namenda) 10 mg PO BID [facility] Stop: 02/19/18 08:59 Last Admin: 12/26/17 09:15 Dose: Not Given Multivitamins/Vitamin C (Theragran) 1 tab PO DAILY [facility] Stop: 02/19/18 08:59 Last Admin: 12/26/17 09:15 Dose: Not Given Quetiapine Fumarate (Seroquel) 25 mg PO BID [facility]; Protocol Stop: 02/19/18 08:59 Last Admin: 12/26/17 09:15 Dose: Not Given Zolpidem Tartrate (Ambien) 5 mg PO HS PRN PRN Reason: Insomnia Stop: 02/18/18 23:47 Last Admin: 12/25/17 21:07 Dose: 5 mg General: Alert, Oriented x3, No acute distress HEENT: Atraumatic, PERRLA, EOMI Cardiovascular: Regular rate Lungs: Clear to auscultation Abdomen: Bowel sounds Assessment/Plan - Assessment Assessment: psychotic - Plan Plan: cpm will monitor Nutritional Asmnt/Malnutr-PDOC - Dietary Evaluation Malnutrition Findings (Please click <Entered> for more info): Nutritional Asmnt/Malnutrition Start: 12/24/17 15: 09 Text: Status: Complete Freq: Protocol: Document 12/24/17 15:09 LCHENG (Rec: 12/24/17 15:15 [email or web address] [id number]) Nutritional Asmnt/Malnutrition Patient General Information Nutritional Screening Moderate Risk Diagnosis psychosis NOS Pertinent Medical Hx/Surgical Hx OA, GERD, iron deficiency anemia, HTN Subjective Information Pt seen sleeping in bed at time of visit. Per EMR, PO intake 50-75%. Current Diet Order/ Nutrition Support regular, ayse finely chopped Pertinent Medications coace, pepcid, iron, theragran , seroquel Pertinent Labs 8/ Na 132, Cl 95, Alb 3.7 Nutritional Hx/Data Height 1.8 m Height (Calculated Centimeters) 180.3 Current Weight (lbs) 83.915 kg Weight (Calculated Kilograms) 83.9 Weight (Calculated Grams) 16383.6 [place] Body Weight 172 Body Mass Index (BMI) 25.7 GI Symptoms GI Symptoms None Last BM 8/ Difficult in: None Skin Integrity/Comment: intact Current %PO Fair (50-74%) Estimated Nutritional Goals Calories/Kcals/Kg 23-27 Kcals Calculated 1467-1863 Protein g/k.8 Protein Calculated 67 Fluid: ml 1932-2268ml (1ml/kcal) Nutritional Problem 1. Problem Problem altered nutrition related labs Etiology electrolytes imbalance Signs/Symptoms: Na 132, Cl 95 Malnutrition Alert Is there a minimum of two criteria No selected? Query Text:Check all the applicable criteria. A minimum of two criteria are recommended for diagnosis of either severe or non-severe malnutrition. Malnutrition Related to Morbid Obesity Malnutrition related to morbid obesity No Intervention/Recommendation Comments 1. Continue with current diet as ordered. Assist pt with meals as needed and encourage oral intake. 2. Monitor PO intake, wt, labs and skin integrity 3. F/U as low risk in 7 days, 12/31, PO check 12/27 Expected Outcomes/Goals Expected Outcomes/Goals 1. PO intake to meet at least 75% of nutritional needs. 2. Wt stability, skin to remain intact, labs to approach WNL.
--- NOTE | 2017-12-27 00:41 | Progress Notes ---
DATE: 12/26/2017 SUBJECTIVE: Staff was spoken to. The patient is interviewed. Mood is noted to be irritable. Affect is constricted. Coping skills are noted to be still poor. Sleep and appetite also noted to be very poor. The patient has been having difficult time to cope with the stress. The patient is getting easily frustrated. The patient has been singing in [place]. ASSESSMENT: The patient is still impulsive and has been delusional. PLAN: To continue the patient with the supportive therapy and I encouraged the patient to verbalize the concerns rather than to act out. JOB# [id number]
[2017-12-27] MEDS: Ferrous Sulfate 325 MG TAB PO SCH (08:00)
[2017-12-27] MEDS: Multivitamin Tab PO SCH (08:01)
[2017-12-27] MEDS ORDERED: Haloperidol Lactate 5 mg/mL 1mL Vial ONE (15:56)
--- NOTE | 2017-12-28 00:05 | Progress Notes ---
DATE: 12/27/2017 PSYCHIATRIC PROGRESS NOTE SUBJECTIVE: Staff was spoken to. The patient is interviewed. Mood is noted to be irritable. Affect is constricted. Insight and judgment are noted to be still impaired. Impulse control is noted to be limited. Coping skills are noted to be limited. The patient has been reluctant to comply with the medication. The patient has been singing and the patient continues to be grandiose, but the aggression seems to be coming under control. No side effects to the medications are noted today. ASSESSMENT: The patient is still paranoid. PLAN: To continue the patient's current medications. I encouraged the patient to verbalize the concerns rather than to act out. JOB# [id number]
[2017-12-28] MEDS: Ferrous Sulfate 325 MG TAB PO SCH (08:44)
[2017-12-28] MEDS: Multivitamin Tab PO SCH (08:44)
--- NOTE | 2017-12-28 22:46 | Progress Notes ---
DATE: 12/28/2017 SUBJECTIVE: The patient was seen in his room. The patient is asleep, but easily arousable. The patient appears to be guarded with episodes of irritability. Otherwise, the patient denies any suicidal or homicidal thoughts. The patient is in no acute distress. OBJECTIVE: VITAL SIGNS: Temperature 97.6, heart rate of 80, blood pressure 132/68, respirations of 19, 98% on room air. HEENT: Head is atraumatic and normocephalic. Eyes: Bilateral conjunctivae are clear. Bilateral pupils are equally round, reactive. NECK: Supple. No JVD. CARDIOVASCULAR: S1 and S2, without murmur. PULMONARY: Clear to auscultation. GASTROINTESTINAL: Soft and nontender without guarding. Positive bowel sounds. MUSCULOSKELETAL: No clubbing. No cyanosis noted. ASSESSMENT: 1. Dementia. 2. Iron deficiency anemia. 3. Hypertension. 4. Gastroesophageal reflux disease. PLAN: We will keep the patient inpatient Psychiatric unit. We will follow up with the psychiatrist to monitor the patient's condition and behaviors. Treatment plans were discussed with the patient's nurse. Treatment plans were discussed with Dr. March. JOB# [id number]
--- NOTE | 2017-12-29 01:39 | Progress Notes ---
DATE: 12/28/2017 SUBJECTIVE: Staff was spoken to. The patient is interviewed. Mood is noted to be irritable. Affect is constricted. Coping skills are noted to be still poor. Sleep and appetite are also to be limited. No side effects to the medications are noted, but the patient has been consistently refusing to comply with the medications stating that there is no reason for him to be on the medication because he is doing fine. The patient is singing and the patient has been so far not giving an opportunity where we need to medicate him ____. ASSESSMENT: The patient is still impulsive. PLAN: To continue the patient with the supportive therapy, I encouraged the patient to verbalize the concerns rather than to act out. [facility]# [id number]
[2017-12-29] MEDS: Ferrous Sulfate 325 MG TAB PO SCH (09:39)
[2017-12-29] MEDS: Multivitamin Tab PO SCH (09:41)
--- NOTE | 2017-12-29 11:34 | General Progress Note ---
Subjective - Review of Systems Events since last encounter: patient irritable confused denies pain Subjective: patient is agitated, NAD Objective - Results Result Diagrams: 12/20/17 16:53 12/20/17 16:53 Recent Labs: Laboratory Last Values WBC 6.5 Th/cmm (4.8-10.8) 12/20/17 16:53 RBC 4.05 Mil/cmm (3.80-5.80) 12/20/17 16:53 Hgb 13.1 gm/dL (12-16) 12/20/17 16:53 Hct 38.7 % (41.0-60) L 12/20/17 16:53 MCV 95.6 fl (80-99) 12/20/17 16:53 MCH 32.4 pg (27.0-31.0) H 12/20/17 16:53 MCHC Differential 33.9 pg (28.0-36.0) 12/20/17 16:53 RDW 14.3 % (11.5-20.0) 12/20/17 16:53 Plt Count 242 Th/cmm (150-400) 12/20/17 16:53 MPV 6.4 fl 12/20/17 16:53 Neutrophils % 78.3 % (40.0-80.0) 12/20/17 16:53 Lymphocytes % 14.0 % (20.0-50.0) L 12/20/17 16:53 Monocytes % 6.7 % (2.0-10.0) 12/20/17 16:53 Eosinophils % 1.0 % (0.0-5.0) 12/20/17 16:53 Basophils % 0.0 % (0.0-2.0) 12/20/17 16:53 Sodium 132 mEq/L (136-145) L 12/20/17 16:53 Potassium 3.7 mEq/L (3.5-5.1) 12/20/17 16:53 Chloride 95 mEq/L (98-107) L 12/20/17 16:53 Carbon Dioxide 27.7 mEq/L (21.0-31.0) 12/20/17 16:53 Anion Gap 13.0 (7.0-16.0) 12/20/17 16:53 BUN 21 mg/dL (7-25) 12/20/17 16:53 Creatinine 1.1 mg/dL (0.7-1.3) 12/20/17 16:53 Est GFR ( Amer) TNP 12/20/17 16:53 Est GFR (Non-Af Amer) TNP 12/20/17 16:53 BUN/Creatinine Ratio 19.1 12/20/17 16:53 Glucose 102 mg/dL (70-105) 12/20/17 16:53 Calcium 9.3 mg/dL (8.6-10.3) 12/20/17 16:53 Total Bilirubin 1.0 mg/dL (0.3-1.0) 12/20/17 16:53 AST 10 U/L (13-39) L 12/20/17 16:53 ALT 5 U/L (7-52) L 12/20/17 16:53 Alkaline Phosphatase 70 U/L (34-104) 12/20/17 16:53 Total Protein 6.8 gm/dL (6.0-8.3) 12/20/17 16:53 Albumin 3.7 gm/dL (4.2-5.5) L 12/20/17 16:53 Globulin 3.1 gm/dL 12/20/17 16:53 Albumin/Globulin Ratio 1.2 (1.0-1.8) 12/20/17 16:53 Urine Source CLEAN C 12/20/17 17:20 Urine Color YELLOW 12/20/17 17:20 Urine Clarity CLEAR (CLEAR) 12/20/17 17:20 Urine pH 6.0 (4.6 - 8.0) 12/20/17 17:20 Ur Specific [place] 1.025 (1.005-1.030) 12/20/17 17:20 Urine Protein NEGATIVE mg/dL (NEGATIVE) 12/20/17 17:20 Urine Glucose (UA) NEGATIVE mg/dL (NEGATIVE) 12/20/17 17:20 Urine Ketones 15 mg/dL (NEGATIVE) H 12/20/17 17:20 Urine Blood NEGATIVE (NEGATIVE) 12/20/17 17:20 Urine Nitrate POSITIVE (NEGATIVE) H 12/20/17 17:20 Urine Bilirubin NEGATIVE (NEGATIVE) 12/20/17 17:20 Urine Urobilinogen 2.0 E.U./dL (0.2 - 1.0) 12/20/17 17:20 Ur Leukocyte Esterase SMALL (NEGATIVE) H 12/20/17 17:20 Urine RBC 0-2 /hpf (0-5) H 12/20/17 17:20 Urine WBC 6-10 /hpf (0-5) 12/20/17 17:20 Ur Epithelial Cells FEW /lpf (FEW) 12/20/17 17:20 Urine Bacteria 1+ /hpf (NONE SEEN) H 12/20/17 17:20 Urine Mucus FEW /lpf (FEW) 12/20/17 17:20 Urine Opiates Screen NEGATIVE (NEGATIVE) 12/20/17 17:20 Urine Methadone Screen NEGATIVE (NEGATIVE) 12/20/17 17:20 Ur Barbiturates Screen NEGATIVE (NEGATIVE) 12/20/17 17:20 Ur Tricyclics Screen NEGATIVE (NEGATIVE) 12/20/17 17:20 Ur Phencyclidine Scrn NEGATIVE (NEGATIVE) 12/20/17 17:20 Amphetamines Screen NEGATIVE (NEGATIVE) 12/20/17 17:20 U Methamphetamines Scrn NEGATIVE (NEGATIVE) 12/20/17 17:20 U Benzodiazepines Scrn NEGATIVE (NEGATIVE) 12/20/17 17:20 U Cocaine Metab Screen NEGATIVE (NEGATIVE) 12/20/17 17:20 U Cannabinoids Screen NEGATIVE (NEGATIVE) 12/20/17 17:20 - Physical Exam Vitals and I&O: Vital Signs Temp 97.9 F 12/29/17 08:00 Pulse 86 12/29/17 08:00 Resp 18 12/29/17 08:00 BP 131/75 12/29/17 09:39 Pulse Ox 97 12/29/17 08:00 Intake & Output 12/28/17 12/29/17 12/29/17 18:59 06:59 18:59 Intake Total 500 Balance 500 Intake: Oral 500 Other: # Voids 3 # Bowel Movements 0 Active Medications: Current Medications Acetaminophen (Tylenol) 650 mg PO Q4HR PRN PRN Reason: Mild Pain / Temp above 100 Stop: 02/18/18 23:47 Al Hydrox/Mg Hydrox/Simethicone (Maalox) 30 ml PO Q4HR PRN PRN Reason: GI DISTRESS Stop: 02/18/18 23:47 Aspirin (Ecotrin) 81 mg PO DAILY [facility] Stop: 02/19/18 08:59 Last Admin: 12/29/17 09:39 Dose: 81 mg Bisacodyl (Dulcolax 10 Mg Supp) 10 mg RC Q72HR PRN PRN Reason: Constipation Stop: 02/18/18 23:53 Docusate Sodium (Colace) 250 mg PO DAILY [facility] Stop: 02/19/18 08:59 Last Admin: 12/29/17 09:39 Dose: 250 mg Donepezil HCl (Aricept) 10 mg PO HS [facility] Stop: 02/19/18 20:59 Last Admin: 12/28/17 21:55 Dose: Not Given Escitalopram Oxalate (Lexapro) 5 mg PO DAILY [facility]; Protocol Stop: 02/19/18 08:59 Last Admin: 12/29/17 09:38 Dose: 5 mg Famotidine (Pepcid) 40 mg PO QAM [facility] Stop: 02/19/18 08:59 Last Admin: 12/29/17 09:39 Dose: 40 mg Ferrous Sulfate (Iron) 325 mg PO DAILY [facility] Stop: 02/19/18 08:59 Last Admin: 12/29/17 09:39 Dose: 325 mg Hydrochlorothiazide (Hctz) 25 mg PO QAM [facility] Stop: 02/19/18 08:59 Last Admin: 12/29/17 09:39 Dose: 25 mg Magnesium Hydroxide (Milk Of Magnesia) 30 ml PO HS PRN PRN Reason: Constipation Memantine (Namenda) 10 mg PO BID [facility] Stop: 02/19/18 08:59 Last Admin: 12/29/17 09:39 Dose: 10 mg Multivitamins/Vitamin C (Theragran) 1 tab PO DAILY [facility] Stop: 02/19/18 08:59 Last Admin: 12/29/17 09:41 Dose: 1 tab Quetiapine Fumarate (Seroquel) 25 mg PO BID [facility]; Protocol Stop: 02/19/18 08:59 Last Admin: 12/29/17 09:41 Dose: 25 mg General: Alert, Oriented x3, No acute distress HEENT: Atraumatic, PERRLA, EOMI Cardiovascular: Regular rate Lungs: Clear to auscultation Abdomen: Bowel sounds Assessment/Plan - Assessment Assessment: psychotic - Plan Plan: cpm will monitor Nutritional Asmnt/Malnutr-PDOC - Dietary Evaluation Malnutrition Findings (Please click <Entered> for more info): Nutritional Asmnt/Malnutrition Start: 12/24/17 15: 09 Text: Status: Complete Freq: Protocol: Document 12/24/17 15:09 MELVA (Rec: 12/24/17 15:15 [email or web address]) Nutritional Asmnt/Malnutrition Patient General Information Nutritional Screening Moderate Risk Diagnosis psychosis NOS Pertinent Medical Hx/Surgical Hx OA, GERD, iron deficiency anemia, HTN Subjective Information Pt seen sleeping in bed at time of visit. Per EMR, PO intake 50-75%. Current Diet Order/ Nutrition Support regular, ayse finely chopped Pertinent Medications coace, pepcid, iron, theragran , seroquel Pertinent Labs 12/20 Na 132, Cl 95, Alb 3.7 Nutritional Hx/Data Height 1.8 m Height (Calculated Centimeters) 180.3 Current Weight (lbs) 83.915 kg Weight (Calculated Kilograms) 83.9 Weight (Calculated Grams) 56263.6 [place] Body Weight 172 Body Mass Index (BMI) 25.7 GI Symptoms GI Symptoms None Last BM 12/22 Difficult in: None Skin Integrity/Comment: intact Current %PO Fair (50-74%) Estimated Nutritional Goals Calories/Kcals/Kg 23-27 Kcals Calculated 3448-1076 Protein g/k.8 Protein Calculated 67 Fluid: ml 1932-2268ml (1ml/kcal) Nutritional Problem 1. Problem Problem altered nutrition related labs Etiology electrolytes imbalance Signs/Symptoms: Na 132, Cl 95 Malnutrition Alert Is there a minimum of two criteria No selected? Query Text:Check all the applicable criteria. A minimum of two criteria are recommended for diagnosis of either severe or non-severe malnutrition. Malnutrition Related to Morbid Obesity Malnutrition related to morbid obesity No Intervention/Recommendation Comments 1. Continue with current diet as ordered. Assist pt with meals as needed and encourage oral intake. 2. Monitor PO intake, wt, labs and skin integrity 3. F/U as low risk in 7 days, 12/31, PO check 12/27 Expected Outcomes/Goals Expected Outcomes/Goals 1. PO intake to meet at least 75% of nutritional needs. 2. Wt stability, skin to remain intact, labs to approach WNL.
--- NOTE | 2017-12-29 14:26 | Progress Notes ---
DATE: 12/29/2017 SUBJECTIVE: Staff was spoken to. The patient is interviewed. Mood is noted to be less irritable. The patient has complained with the medications this morning. Insight and judgment noted to be improving, the grandiosity is coming down. No side effects to the medications are noted. The patient has been stabilizing. Plan to coordinate the care with the staff members and then look for possible discharge tomorrow. JOB# [id number]
[2017-12-30] MEDS: Multivitamin Tab PO SCH (10:03)
[2017-12-30] MEDS: Ferrous Sulfate 325 MG TAB PO SCH (10:04)
--- NOTE | 2017-12-30 21:14 | Progress Notes ---
DATE: 12/30/2017 SUBJECTIVE: Staff was spoken to. The patient is interviewed. Mood is noted to be less irritable. Affect is appropriate. Not suicidal or homicidal. Insight and judgment are noted to be improving. Impulse control seems to be fair. No side effects to the medications are noted. The patient has been having difficult time to cope with the stress, but the patient is not getting to a point where he has to be medicated against his will. No side effects to the p.r.n. dose of medications are noted so far. ASSESSMENT: The patient is stabilizing. PLAN: If there is placement available, possibly the patient is going to be discharged to the placement. JOB# [id number]
== END 2017-12-30 14:00 | DRG 885 ==
LOC: ER 15:23 → GERO2 22:33
PROVIDERS: ADMIT Psychiatry & Neurology Psychiatry; ATTEND Psychiatry & Neurology Psychiatry
DX: F29 Unspecified psychosis not due to a substance or known physiological condition (principal); F03.91 Unspecified dementia, unspecified severity, with behavioral disturbance; I10 Essential (primary) hypertension; I25.10 Atherosclerotic heart disease of native coronary artery without angina pectoris; I48.91 Unspecified atrial fibrillation; Z82.49 Family history of ischemic heart disease and other diseases of the circulatory system; F32.9 Major depressive disorder, single episode, unspecified; F41.9 Anxiety disorder, unspecified; M19.90 Unspecified osteoarthritis, unspecified site; K21.9 Gastro-esophageal reflux disease without esophagitis; D50.9 Iron deficiency anemia, unspecified
CPT/HCPCS: 36415-UA; 80053-TC; 80307; 81001-TC; 85025-TC; 87086-90; 93005; J0696; J1630; J2060; J7040; Z7610

== ENCOUNTER 2018-12-15 18:21 | Inpatient (IN) | payer MEDICARE, OTHER ==
--- NOTE | 2018-12-15 18:34 | ED Physician Chart ---
ED Chief Complaint/HPI - Patient Information Date Seen:: 12/15/18 Time Seen:: 18:30 Chief Complaint:: Increased agitation. History of Present Illness:: Brought in by ambulance from nursing facility because pt has been noticed to have increased agitation. Pt speaks clearly. Pt denies any bodily pain or discomfort. Pt has dementia and is not fully cooperative; thus, H & P are limited. Info is primarily from review of limited transfer documents. Allergies:: Allergies Allergy/AdvReac Type Severity Reaction Status Date / Time No Known Allergies Allergy Verified 12/20/17 16:01 Vitals:: see Nurse Note. Historian:: Patient, Medical Records (from transferring facility.) Family MD/PCP:: Drs. Russell/Joaquim LMP:: N/A Review:: Nurse's Note Reviewed, Transfer documents Reviewed ED Review of Systems - Review of Systems General/Constitutional: Other (Pt does not cooperate to provide reliable info for ROS.) ED Past Medical History - Past Medical History Past Medical History: HTN, PUD/GERD, Dementia (with Alzheimer's disease), Other (chronic anemia. Chronic atrial fibrillation.) Family History: Other (Pt does not cooperate to provide info for FHx.) Social History: Non Smoker, No Alcohol, No Drug Use, Care Facility Surgical History: Appendectomy Psychiatricy History: Dementia, Other (schizoaffective disorder.) Medication: Reviewed Family Medical History - Family Member Mother History Unknown: Yes Ethnicity: Non- Hx Family Cancer: (Unknown) Hx Family Coronary Artery Disease: (Unknown) Hx Family Congestive Heart Failure: (Unknown) Hx Family Hypertension: (Unknown) Hx Family Stroke: (Unknown) Hx Family Diabetes: (Unknown) Hx Family Seizures: (Unknown) Hx Family Dementia: (Unknown) Hx Family AIDS: (Unknown) Hx Family COPD: (Unknown) Hx Family Hepatitis: (Unknown) Hx Family Psychiatric Problems: (Unknown) Hx Family Tuberculosis: (Unknown) Father History Unknown: Yes ED Physical Exam - Physical Examination General/Constitutional: Awake, Well-developed, well-nourished (elderly male), Alert, No distress, Non-toxic appearing Other Gen/Cons comments:: Breathes comfortably, speaks clearly, but is not fully cooperative. Head: Atraumatic Eyes: Lids, conjuctiva normal, PERRL, EOMI Skin: Well hydrated, No lymphadenopathy ENMT: External ears, nose nl, Nasal exam nl, Oropharynx nl Neck: Nontender, Full ROM w/o pain, No JVD, No nuchal rigidity, No mass, No stridor Respiratory: Clear to Auscultation, No Wheeze/Rhonchi/Rales Cardio Vascular: RRR, No murmur, gallop, rubs GI: No tenderness/rebounding/guarding, No organomegaly, Normal BS's, Nondistended, No mass/bruits Extremities: No tenderness or effusion, No edema Neuro/Psych: Alert/oriented (knows his name, that he is in a hospital, and that it is November.) Other Neuro/Psych comments:: Spontaneous movements noticed in all 4 extremities. Pt does not cooperate for full neurological exam. ED Labs/Radiology/EKG Results - Lab Results Results: Laboratory Tests 12/15/18 12/15/18 12/15/18 13:45 18:57 18:57 WBC 4.7 L RBC 3.98 Hgb 12.6 Hct 37.5 L MCV 94.3 MCH 31.7 H MCHC Differential 33.6 RDW 13.9 Plt Count 224 MPV 5.8 Neutrophils % 64.1 Lymphocytes % 25.5 Monocytes % 8.8 Eosinophils % 1.4 Basophils % 0.2 PT 10.9 INR 1.05 PTT (Actin FS) 29.4 Sodium Potassium Chloride Carbon Dioxide Anion Gap BUN Creatinine Est GFR ( Amer) Est GFR (Non-Af Amer) BUN/Creatinine Ratio Glucose Calcium Total Bilirubin AST ALT Alkaline Phosphatase Total Protein Albumin Globulin Albumin/Globulin Ratio Urine Color YELLOW Urine Clarity CLOUDY Urine pH 5.5 Ur Specific [place] 1.025 Urine Protein NEGATIVE Urine Glucose (UA) NEGATIVE Urine Ketones NEGATIVE Urine Blood TRACE Urine Nitrate POSITIVE H Urine Bilirubin NEGATIVE Urine Urobilinogen 0.2 Ur Leukocyte Esterase SMALL H 12/15/18 18:57 WBC RBC Hgb Hct MCV MCH MCHC Differential RDW Plt Count MPV Neutrophils % Lymphocytes % Monocytes % Eosinophils % Basophils % PT INR PTT (Actin FS) Sodium 128 L Potassium 3.7 Chloride 92 L Carbon Dioxide 30.7 Anion Gap 9.0 BUN 15 Creatinine 0.9 Est GFR ( Amer) TNP Est GFR (Non-Af Amer) TNP BUN/Creatinine Ratio 16.7 Glucose 110 H Calcium 9.3 Total Bilirubin 0.7 AST 13 ALT 6 L Alkaline Phosphatase 74 Total Protein 6.6 Albumin 3.8 L Globulin 2.8 Albumin/Globulin Ratio 1.4 Urine Color Urine Clarity Urine pH Ur Specific [place] Urine Protein Urine Glucose (UA) Urine Ketones Urine Blood Urine Nitrate Urine Bilirubin Urine Urobilinogen Ur Leukocyte Esterase Laboratory Last Values WBC 4.7 Th/cmm (4.8-10.8) L 12/15/18 18:57 RBC 3.98 Mil/cmm (3.80-5.80) 12/15/18 18:57 Hgb 12.6 gm/dL (12-16) 12/15/18 18:57 Hct 37.5 % (41.0-60) L 12/15/18 18:57 MCV 94.3 fl (80-99) 12/15/18 18:57 MCH 31.7 pg (27.0-31.0) H 12/15/18 18:57 MCHC Differential 33.6 pg (28.0-36.0) 12/15/18 18:57 RDW 13.9 % (11.5-20.0) 12/15/18 18:57 Plt Count 224 Th/cmm (150-400) 12/15/18 18:57 MPV 5.8 fl 12/15/18 18:57 Neutrophils % 64.1 % (40.0-80.0) 12/15/18 18:57 Lymphocytes % 25.5 % (20.0-50.0) 12/15/18 18:57 Monocytes % 8.8 % (2.0-10.0) 12/15/18 18:57 Eosinophils % 1.4 % (0.0-5.0) 12/15/18 18:57 Basophils % 0.2 % (0.0-2.0) 12/15/18 18:57 PT 10.9 SECONDS (9.5-11.5) 12/15/18 18:57 INR 1.05 (0.5-1.4) 12/15/18 18:57 PTT (Actin FS) 29.4 SECONDS (26.0-38.0) 12/15/18 18:57 Sodium 128 mEq/L (136-145) L 12/15/18 18:57 Potassium 3.7 mEq/L (3.5-5.1) 12/15/18 18:57 Chloride 92 mEq/L (98-107) L 12/15/18 18:57 Carbon Dioxide 30.7 mEq/L (21.0-31.0) 12/15/18 18:57 Anion Gap 9.0 (7.0-16.0) 12/15/18 18:57 BUN 15 mg/dL (7-25) 12/15/18 18:57 Creatinine 0.9 mg/dL (0.7-1.3) 12/15/18 18:57 Est GFR ( Amer) TNP 12/15/18 18:57 Est GFR (Non-Af Amer) TNP 12/15/18 18:57 BUN/Creatinine Ratio 16.7 12/15/18 18:57 Glucose 110 mg/dL (70-105) H 12/15/18 18:57 Calcium 9.3 mg/dL (8.6-10.3) 12/15/18 18:57 Total Bilirubin 0.7 mg/dL (0.3-1.0) 12/15/18 18:57 AST 13 U/L (13-39) 12/15/18 18:57 ALT 6 U/L (7-52) L 12/15/18 18:57 Alkaline Phosphatase 74 U/L (34-104) 12/15/18 18:57 Total Protein 6.6 gm/dL (6.0-8.3) 12/15/18 18:57 Albumin 3.8 gm/dL (4.2-5.5) L 12/15/18 18:57 Globulin 2.8 gm/dL 12/15/18 18:57 Albumin/Globulin Ratio 1.4 (1.0-1.8) 12/15/18 18:57 Urine Color YELLOW 12/15/18 13:45 Urine Clarity CLOUDY (CLEAR) 12/15/18 13:45 Urine pH 5.5 (4.6 - 8.0) 12/15/18 13:45 Ur Specific [place] 1.025 (1.005-1.030) 12/15/18 13:45 Urine Protein NEGATIVE mg/dL (NEGATIVE) 12/15/18 13:45 Urine Glucose (UA) NEGATIVE mg/dL (NEGATIVE) 12/15/18 13:45 Urine Ketones NEGATIVE mg/dL (NEGATIVE) 12/15/18 13:45 Urine Blood TRACE (NEGATIVE) 12/15/18 13:45 Urine Nitrate POSITIVE (NEGATIVE) H 12/15/18 13:45 Urine Bilirubin NEGATIVE (NEGATIVE) 12/15/18 13:45 Urine Urobilinogen 0.2 E.U./dL (0.2 - 1.0) 12/15/18 13:45 Ur Leukocyte Esterase SMALL (NEGATIVE) H 12/15/18 13:45 Laboratory Last Values WBC 4.7 Th/cmm (4.8-10.8) L 12/15/18 18:57 RBC 3.98 Mil/cmm (3.80-5.80) 12/15/18 18:57 Hgb 12.6 gm/dL (12-16) 12/15/18 18:57 Hct 37.5 % (41.0-60) L 12/15/18 18:57 MCV 94.3 fl (80-99) 12/15/18 18:57 MCH 31.7 pg (27.0-31.0) H 12/15/18 18:57 MCHC Differential 33.6 pg (28.0-36.0) 12/15/18 18:57 RDW 13.9 % (11.5-20.0) 12/15/18 18:57 Plt Count 224 Th/cmm (150-400) 12/15/18 18:57 MPV 5.8 fl 12/15/18 18:57 Neutrophils % 64.1 % (40.0-80.0) 12/15/18 18:57 Lymphocytes % 25.5 % (20.0-50.0) 12/15/18 18:57 Monocytes % 8.8 % (2.0-10.0) 12/15/18 18:57 Eosinophils % 1.4 % (0.0-5.0) 12/15/18 18:57 Basophils % 0.2 % (0.0-2.0) 12/15/18 18:57 PT 10.9 SECONDS (9.5-11.5) 12/15/18 18:57 INR 1.05 (0.5-1.4) 12/15/18 18:57 PTT (Actin FS) 29.4 SECONDS (26.0-38.0) 12/15/18 18:57 Sodium 128 mEq/L (136-145) L 12/15/18 18:57 Potassium 3.7 mEq/L (3.5-5.1) 12/15/18 18:57 Chloride 92 mEq/L (98-107) L 12/15/18 18:57 Carbon Dioxide 30.7 mEq/L (21.0-31.0) 12/15/18 18:57 Anion Gap 9.0 (7.0-16.0) 12/15/18 18:57 BUN 15 mg/dL (7-25) 12/15/18 18:57 Creatinine 0.9 mg/dL (0.7-1.3) 12/15/18 18:57 Est GFR ( Amer) TNP 12/15/18 18:57 Est GFR (Non-Af Amer) TNP 12/15/18 18:57 BUN/Creatinine Ratio 16.7 12/15/18 18:57 Glucose 110 mg/dL (70-105) H 12/15/18 18:57 Calcium 9.3 mg/dL (8.6-10.3) 12/15/18 18:57 Total Bilirubin 0.7 mg/dL (0.3-1.0) 12/15/18 18:57 AST 13 U/L (13-39) 12/15/18 18:57 ALT 6 U/L (7-52) L 12/15/18 18:57 Alkaline Phosphatase 74 U/L (34-104) 12/15/18 18:57 Troponin I 0.03 ng/mL (0.01-0.05) 12/15/18 18:57 Total Protein 6.6 gm/dL (6.0-8.3) 12/15/18 18:57 Albumin 3.8 gm/dL (4.2-5.5) L 12/15/18 18:57 Globulin 2.8 gm/dL 12/15/18 18:57 Albumin/Globulin Ratio 1.4 (1.0-1.8) 12/15/18 18:57 Urine Source CLEAN C 12/15/18 13:45 Urine Color YELLOW 12/15/18 13:45 Urine Clarity CLOUDY (CLEAR) 12/15/18 13:45 Urine pH 5.5 (4.6 - 8.0) 12/15/18 13:45 Ur Specific [place] 1.025 (1.005-1.030) 12/15/18 13:45 Urine Protein NEGATIVE mg/dL (NEGATIVE) 12/15/18 13:45 Urine Glucose (UA) NEGATIVE mg/dL (NEGATIVE) 12/15/18 13:45 Urine Ketones NEGATIVE mg/dL (NEGATIVE) 12/15/18 13:45 Urine Blood TRACE (NEGATIVE) 12/15/18 13:45 Urine Nitrate POSITIVE (NEGATIVE) H 12/15/18 13:45 Urine Bilirubin NEGATIVE (NEGATIVE) 12/15/18 13:45 Urine Urobilinogen 0.2 E.U./dL (0.2 - 1.0) 12/15/18 13:45 Ur Leukocyte Esterase SMALL (NEGATIVE) H 12/15/18 13:45 Urine RBC 2-5 /hpf (0-5) H 12/15/18 13:45 Urine WBC 6-10 /hpf (0-5) 12/15/18 13:45 Ur Epithelial Cells FEW /lpf (FEW) 12/15/18 13:45 Urine Bacteria 4+ /hpf (NONE SEEN) H 12/15/18 13:45 Pending lab result: urine culture. - Radiology Results Results: CXR (1v.): Based on my interpretation, cardiomegaly; otherwise, NAD. Official report is pending. - EKG Interpretations EKG Time:: 18:59 Rate & Rhythm: Atrial fibrillation with VR 56 Comments:: No acute ischemic changes. ED Septic Shock - . Is Septic Shock (SBP<90, OR Lactate>4 mmol\L) present?: No ED Reassessment (Disposition) - Reassessment Reassessment:: 1955 Pt remains stable and comfortable. Repeat body temperature is 98.8F. Pt is medically cleared to be admitted to Geropsych Unit. Reassessment Condition:: Improved - Diagnosis Diagnosis:: H/O schizoaffective disorder and dementia with increased agitation. UTI. Mild hyponatremia. Mild hyperglycemia. Chronic atrial fibrillation. - Patient Disposition Admitted to:: [facility] Admitting Medical Physician:: Estella March Admitting Psych Physician:: Nuzhat Russell Time:: 20:00 Condition at Disposition:: Stable
[2018-12-15 19:07] LABS: URINE SOURCE CLEAN C
[2018-12-15 19:07] LABS: % BASOPHILS 0.2 % (0.0-2.0); % EOSINOPHILS 1.4 % (0.0-5.0); % LYMPHOCYTES 25.5 % (20.0-50.0); % MONOCYTES 8.8 % (2.0-10.0); % NEUTROPHILS 64.1 % (40.0-80.0); EOSINOPHILE ABSOLUTE 0.1 Th/cmm (0.1-0.4); HEMATOCRIT 37.5 % (41.0-60); HEMOGLOBIN 12.6 gm/dL (12-16); LYMPHOCYTE ABSOLUTE 1.2 Th/cmm (1.5-3.0); MEAN CELL VOLUME 94.3 fl (80-99); MEAN CORPUSCULAR HEMOGLOBIN 31.7 pg (27.0-31.0); MEAN CORPUSCULAR HGB CONC 33.6 pg (28.0-36.0); MONOCYTE ABSOLUTE 0.4 Th/cmm (0.3-1.0); PLATELET COUNT 224 Th/cmm (150-400); RED BLOOD COUNT 3.98 Mil/cmm (3.80-5.80); RED CELL DISTRIBUTION WIDTH 13.9 % (11.5-20.0); WHITE BLOOD COUNT 4.7 Th/cmm (4.8-10.8)
[2018-12-15 19:22] LABS: URINE BILIRUBIN NEGATIVE (NEGATIVE); URINE BLOOD TRACE (NEGATIVE); URINE GLUCOSE (UA) NEGATIVE (NEGATIVE); URINE KETONE NEGATIVE (NEGATIVE); URINE LEUKOCYTE ESTERASE SMALL (NEGATIVE); URINE MICROSCOPIC INDICATED? YES; URINE NITRATE POSITIVE (NEGATIVE); URINE PH 5.5 (4.6 - 8.0); URINE PROTEIN NEGATIVE (NEGATIVE); URINE UROBILINOGEN 0.2 E.U./dL (0.2 - 1.0)
[2018-12-15 19:24] LABS: INR 1.05 (0.5-1.4)
[2018-12-15 19:29] LABS: ALB/GLOB RATIO 1.4 (1.0-1.8); ALBUMIN 3.8 gm/dL (4.2-5.5); ALKALINE PHOSPHATASE 74 U/L (34-104); BILIRUBIN,TOTAL 0.7 mg/dL (0.3-1.0); BUN - UREA NITROGEN 15 mg/dL (7-25); CALCIUM SERUM 9.3 mg/dL (8.6-10.3); CARBON DIOXIDE 30.7 mEq/L (21.0-31.0); CHLORIDE 92 mEq/L (98-107); CREATININE - SERUM 0.9 mg/dL (0.7-1.3); GLUCOSE 110 mg/dL (70-105); POTASSIUM SERUM 3.7 mEq/L (3.5-5.1); SGOT 13 U/L (13-39); SGPT/ALT 6 U/L (7-52); SODIUM SERUM 128 mEq/L (136-145); TOTAL PROTEIN,SERUM 6.6 gm/dL (6.0-8.3)
[2018-12-15 19:31] LABS: URINE CLARITY CLOUDY (CLEAR); URINE COLOR YELLOW
[2018-12-15] MEDS ORDERED: Sulfamethoxazole/TMP 800/160mg Tab PO ONE (19:37)
[2018-12-15] MEDS ORDERED: Sulfamethoxazole/TMP 800/160mg Tab ONE (19:40)
[2018-12-15 19:44] LABS: URINE BACTERIA 4+ /hpf (NONE SEEN); URINE EPITHELIAL CELLS FEW /lpf (FEW)
[2018-12-15 21:33] VITALS: BP 157/81
[2018-12-15] MEDS ORDERED: Magnesium Hydroxide (MOM) 30 mL UDC PO PRN (21:37)
[2018-12-15] MEDS ORDERED: Maalox 30 mL Cup PO PRN (21:37)
[2018-12-15] MEDS ORDERED: Acetaminophen 500 MG TAB PO PRN ×2 (21:49)
[2018-12-16 03:14] LABS: CHOLESTEROL 120 mg/dL (<200); TRIGLYCERIDES 54 mg/dL (<150)
[2018-12-16 05:01] LABS: HDL -HIGH DENSITY LIPOPROTEIN 55 mg/dL (23-92)
[2018-12-16] MEDS: Multivitamin Tab PO SCH (08:45)
--- NOTE | 2018-12-16 09:56 | Diagnostic Imaging Report ---
CHEST X-RAY: AP view INDICATION: pain COMPARISON: None FINDINGS: Chronic lung changes are seen with increased right upper lung zone lung markings. No focal consolidation or effusions. Mild cardiomegaly noted with atherosclerosis. Degenerative changes spine are noted.*Gas-filled loops of bowel of the upper abdomen are noted. IMPRESSION: Chronic lung changes increased right upper lung zone markings which a be chronic, however, faint infiltrate cannot be excluded, please correlate clinically. Mild Cardiomegaly and atherosclerotic vascular disease.
--- NOTE | 2018-12-16 13:51 | History & Physical ---
ADMIT DATE: 12/15/2018 CHIEF COMPLAINT: Increased agitation. HISTORY OF PRESENT ILLNESS: The patient is an 88-year-old male with a past medical history of psychosis, muscle weakness, difficulty walking, Alzheimer dementia, essential hypertension, iron deficiency anemia, chronic pain syndrome, schizophrenia, vitamin deficiency, hyperosmolarity and hyponatremia in the past, atrial fibrillation, GERD without esophagitis, anorexia, iron deficiency, was brought in from nursing facility for increased agitation. The patient is ____ and wanted to see his doctor, Dr. Russell. Otherwise, no fever, no chills, currently stable, lying in the bed. PAST MEDICAL HISTORY: As mentioned above unspecified psychosis, generalized muscle weakness, difficulty walking, lack of coordination, Alzheimer's dementia, essential hypertension, iron deficiency anemia, chronic pain syndrome, schizoaffective disorder, vitamin D deficiency, hyperosmolarity and hyponatremia, atrial fibrillation, GERD without esophagitis, anorexia, iron deficiency. ALLERGIES: NKDA. MEDICATIONS: See medication reconciliation sheet. FAMILY HISTORY: Unknown. SOCIAL HISTORY: Lives at nursing facility. Denies history of smoking, alcohol or drug use. PHYSICAL EXAMINATION: VITAL SIGNS: Current vital signs shows temperature is 97.7 degrees Fahrenheit, pulse is 63, respirations 20, blood pressure 144/88. GENERAL: The patient is comfortable lying in bed, in no acute distress. HEENT: Head is normocephalic, atraumatic. Oral cavity is moist, pink tongue. EYES: No pallor, no icterus. PERRLA, EOMI. NECK: Supple. No JVD. No carotid bruit. Trachea in midline. CHEST: Bilateral vesicular sounds. No crackles or wheezing. HEART: S1, S2 within normal limits. Regular rhythm. No murmur. No gallop. ABDOMEN: Soft, nontender, and nondistended. Bowel sounds are present. EXTREMITIES: No cyanosis, no clubbing, no edema. CENTRAL NERVOUS SYSTEM: Alert, awake, and oriented x 3. No focal deficits. LABORATORY DATA: Current lab shows WBC count 4700, hemoglobin 12.6, hematocrit 37.5, platelets are 224,000, neutrophils 64%. Sodium 128, potassium 3.7, chloride 92, bicarbonate is 20.5, BUN is 15, creatinine 0.9, glucose 110. Urinalysis was clear, cloudy urine, positive nitrite, small leukocyte esterase, wbc's 6-10 and 4+ bacteria. IMPRESSION: 1. Urinary tract infection. 2. Hypertension. 3. Dementia. 4. Aggressive behavior. 5. Schizophrenia. 6. History of psychosis. RECOMMENDATIONS: Start Levaquin for UTI and we will continue same treatment. Further care per Dr. Russell, psychiatric life skills consultant. JOB# [id number]
--- NOTE | 2018-12-16 23:43 | Psychiatric Evaluation ---
DATE OF SERVICE: 12/15/2018 INITIAL EVALUATION AND MENTAL STATUS EXAM AGE: 88. SEX: Male. PHYSICIAN: Dr. Russell. CHIEF COMPLAINT: Agitation and striking out behavior. HISTORY OF PRESENT ILLNESS: The patient is an 88-year-old male who was transferred from [facility] because of increased agitation and irritability. The patient also has been striking out in the facility and has been having difficulty following directions. Also, has been refusing to take any medications and refusing care. PAST PSYCHIATRIC HISTORY: The patient has history of psychosis as well as history of dementia. PAST MEDICAL HISTORY: The patient has hypertension, anemia, gastroesophageal reflux disease, atrial fib and iron deficiency. The patient also was recently diagnosed with urinary tract infection and is on Bactrim. SOCIAL HISTORY: The patient lives in [facility]. No known alcohol or drug use. ALLERGIES: No known allergies. MENTAL STATUS EXAMINATION: The patient appears his stated age. Anxious. Cooperative. Thought processes are mainly goal directed. The patient denies any auditory or visual hallucinations or delusions. The patient denies any suicidal or homicidal ideations. The patient is alert, but disoriented to place, person and situation, and he thinks that he is in [facility] and is at least 89 years old and has twins that are 30 years old. The patient is disoriented to person and place and date. Impaired immediate and recent memory, but intact remote memory and he did remember his date. Poor insight and poor judgment. Seems to be of average intelligence based on his verbal ability. ASSESSMENT: PRIMARY DIAGNOSIS: Unspecified psychosis. SECONDARY DIAGNOSIS: Dementia, moderate to severe, with psychotic features and behavioral disturbances. TREATMENT PLAN: Continue to monitor behavior and condition closely. We will start individual as well as milieu psychotherapy. Also, we will continue Seroquel 25 mg at bedtime, Namenda 10 mg at bedtime and in the morning as well as Aricept 10 mg at bedtime. ESTIMATED LENGTH OF STAY: 5-7 days. PATIENT'S STRENGTHS AND WEAKNESSES: The patient seems to be in a relatively fair health and cooperative with treatment. Weaknesses are his confusion and ineffective coping. AFTER DISCHARGE PLAN: Outpatient treatment and followup will continue as an outpatient and the patient will return to [facility]. [facility]# [id number]
[2018-12-17 08:07] LABS: A1C 5.3 % (4.8-5.6)
[2018-12-17] MEDS: Multivitamin Tab PO SCH (09:22)
[2018-12-18] MEDS: Multivitamin Tab PO SCH (08:46)
--- NOTE | 2018-12-18 11:33 | Progress Notes ---
DATE: SUBJECTIVE: Chart was reviewed and the patient interviewed. Also discussed the patient's condition with the staff and reviewed records and labs. The patient remains in a depressed mood. The patient also is withdrawn and is isolative. The patient also is forgetful and he still needs lots of redirections. On the other hand, the patient seems less agitated and less irritable and is compliant with taking his medications with no side effects. ASSESSMENT: The patient is still agitated. TREATMENT PLAN: Continue to monitor behavior and continue to work on his agitation and also working on his behavioral modification. JOB# [id number]
[2018-12-19] MEDS: Multivitamin Tab PO SCH (10:56)
--- NOTE | 2018-12-19 22:05 | Progress Notes ---
DATE: 12/18/2018 SUBJECTIVE: Chart was reviewed and the patient interviewed. Also discussed the patient's condition with the staff and reviewed records and labs. "I want to go home." The patient is still depressed and confused. The patient also still has crying spells at times. The patient also has poor appetite. He also tends to isolate himself and interacting minimally with others. The patient also still wants to be left alone. Otherwise, the patient is compliant with taking his medications with no side effects of medications. ASSESSMENT: The patient is still severely depressed. TREATMENT PLAN: Continue to monitor his behavior and hi condition closely. Also, continue adjusting psychotropic medications and working on his severe level of depression. [facility]# [id number]
--- NOTE | 2018-12-19 22:24 | Progress Notes ---
DATE: SUBJECTIVE: Chart reviewed and the patient interviewed. Also discussed the patient's condition with the staff and reviewed records and labs. The patient continued to be in a depressed mood and sad affect. The patient also is still depressed and withdrawn. His interaction with others is minimum. The patient also is still easily irritable and easily agitated. He wants to be left alone. Otherwise, the patient is compliant with taking his medications with no side effects of medications. ASSESSMENT: The patient is still depressed. TREATMENT PLAN: Continue to monitor behavior and condition closely. Also, continue adjusting psychotropic medications and working on his ineffective coping. [facility]# [id number]
[2018-12-20] MEDS: Multivitamin Tab PO SCH (09:09)
--- NOTE | 2018-12-20 11:37 | Progress Notes ---
DATE: 12/20/2018 SUBJECTIVE: The patient was seen in his room. The patient is awake, alert, episodes of confusion, agitation and behavioral outbursts. Otherwise, the patient appears to be in no acute distress. OBJECTIVE: VITAL SIGNS: Temperature 97.6, heart rate 67, blood pressure 106/73, respirations 18, and 96% on room air. HEENT: Head is atraumatic and normocephalic. Eyes: Bilateral conjunctivae are clear. Bilateral pupils are equally round and reactive. NECK: Supple. No JVD. CARDIOVASCULAR: S1, S2, without murmur. PULMONARY: Clear to auscultation. GASTROINTESTINAL: Soft and nontender without guarding. Positive bowel sounds. MUSCULOSKELETAL: No clubbing. No cyanosis noted. ASSESSMENT: 1. Dementia. 2. Psychosis. 3. Hypertension. 4. Osteoarthritis. 5. Gastroesophageal reflux disease. PLAN: We will keep the patient to Inpatient Psychiatric Unit. We will follow up with a psychiatrist to monitor the patient's condition and behavior. Treatment plans were discussed with the patient's nurse. Treatment plans were discussed with Dr. March. JOB# [id number]
[2018-12-21] MEDS: Multivitamin Tab PO SCH (09:17)
--- NOTE | 2018-12-21 09:56 | Internal Medicine Prog Note ---
Internal Medicine Subjective - Subjective Patient seen and examined:: with staff Patient is:: awake, verbal, agitated Per staff patient has:: no adverse event, no episodes of fall Internal Medicine Objective - Results Result Diagrams: 12/15/18 18:57 12/15/18 18:57 Recent Labs: Laboratory Last Values WBC 4.7 Th/cmm (4.8-10.8) L 12/15/18 18:57 RBC 3.98 Mil/cmm (3.80-5.80) 12/15/18 18:57 Hgb 12.6 gm/dL (12-16) 12/15/18 18:57 Hct 37.5 % (41.0-60) L 12/15/18 18:57 MCV 94.3 fl (80-99) 12/15/18 18:57 MCH 31.7 pg (27.0-31.0) H 12/15/18 18:57 MCHC Differential 33.6 pg (28.0-36.0) 12/15/18 18:57 RDW 13.9 % (11.5-20.0) 12/15/18 18:57 Plt Count 224 Th/cmm (150-400) 12/15/18 18:57 MPV 5.8 fl 12/15/18 18:57 Neutrophils % 64.1 % (40.0-80.0) 12/15/18 18:57 Lymphocytes % 25.5 % (20.0-50.0) 12/15/18 18:57 Monocytes % 8.8 % (2.0-10.0) 12/15/18 18:57 Eosinophils % 1.4 % (0.0-5.0) 12/15/18 18:57 Basophils % 0.2 % (0.0-2.0) 12/15/18 18:57 PT 10.9 SECONDS (9.5-11.5) 12/15/18 18:57 INR 1.05 (0.5-1.4) 12/15/18 18:57 PTT (Actin FS) 29.4 SECONDS (26.0-38.0) 12/15/18 18:57 Sodium 128 mEq/L (136-145) L 12/15/18 18:57 Potassium 3.7 mEq/L (3.5-5.1) 12/15/18 18:57 Chloride 92 mEq/L (98-107) L 12/15/18 18:57 Carbon Dioxide 30.7 mEq/L (21.0-31.0) 12/15/18 18:57 Anion Gap 9.0 (7.0-16.0) 12/15/18 18:57 BUN 15 mg/dL (7-25) 12/15/18 18:57 Creatinine 0.9 mg/dL (0.7-1.3) 12/15/18 18:57 Est GFR ( Amer) TNP 12/15/18 18:57 Est GFR (Non-Af Amer) TNP 12/15/18 18:57 BUN/Creatinine Ratio 16.7 12/15/18 18:57 Glucose 110 mg/dL (70-105) H 12/15/18 18:57 Calcium 9.3 mg/dL (8.6-10.3) 12/15/18 18:57 Total Bilirubin 0.7 mg/dL (0.3-1.0) 12/15/18 18:57 AST 13 U/L (13-39) 12/15/18 18:57 ALT 6 U/L (7-52) L 12/15/18 18:57 Alkaline Phosphatase 74 U/L (34-104) 12/15/18 18:57 Troponin I 0.03 ng/mL (0.01-0.05) 12/15/18 18:57 Total Protein 6.6 gm/dL (6.0-8.3) 12/15/18 18:57 Albumin 3.8 gm/dL (4.2-5.5) L 12/15/18 18:57 Globulin 2.8 gm/dL 12/15/18 18:57 Albumin/Globulin Ratio 1.4 (1.0-1.8) 12/15/18 18:57 Triglycerides 54 mg/dL (<150) 12/15/18 18:57 Cholesterol 120 mg/dL (<200) 12/15/18 18:57 LDL Cholesterol Direct 63 mg/dL (75-193) L 12/15/18 18:57 HDL Cholesterol 55 mg/dL (23-92) 12/15/18 18:57 Urine Source CLEAN C 12/15/18 13:45 Urine Color YELLOW 12/15/18 13:45 Urine Clarity CLOUDY (CLEAR) 12/15/18 13:45 Urine pH 5.5 (4.6 - 8.0) 12/15/18 13:45 Ur Specific [place] 1.025 (1.005-1.030) 12/15/18 13:45 Urine Protein NEGATIVE mg/dL (NEGATIVE) 12/15/18 13:45 Urine Glucose (UA) NEGATIVE mg/dL (NEGATIVE) 12/15/18 13:45 Urine Ketones NEGATIVE mg/dL (NEGATIVE) 12/15/18 13:45 Urine Blood TRACE (NEGATIVE) 12/15/18 13:45 Urine Nitrate POSITIVE (NEGATIVE) H 12/15/18 13:45 Urine Bilirubin NEGATIVE (NEGATIVE) 12/15/18 13:45 Urine Urobilinogen 0.2 E.U./dL (0.2 - 1.0) 12/15/18 13:45 Ur Leukocyte Esterase SMALL (NEGATIVE) H 12/15/18 13:45 Urine RBC 2-5 /hpf (0-5) H 12/15/18 13:45 Urine WBC 6-10 /hpf (0-5) 12/15/18 13:45 Ur Epithelial Cells FEW /lpf (FEW) 12/15/18 13:45 Urine Bacteria 4+ /hpf (NONE SEEN) H 12/15/18 13:45 - Physical Exam Vitals and I&O: Vital Signs Temp 97.0 F 12/21/18 06:06 Pulse 61 12/21/18 06:06 Resp 18 12/21/18 06:06 BP 126/71 12/21/18 06:06 Pulse Ox 93 12/21/18 06:06 Intake & Output 12/20/18 12/21/18 12/21/18 18:59 06:59 18:59 Intake Total 1350 240 Balance 1350 240 Intake: Oral 1350 240 Other: # Voids 2 # Bowel Movements 0 Active Medications: Current Medications Acetaminophen (Tylenol) 650 mg PO Q6H PRN PRN Reason: MODERATE PAIN Stop: 02/13/19 21:48 Acetaminophen (Tylenol Extra Strength) 500 mg PO Q4HR PRN PRN Reason: MILD PAIN Stop: 02/13/19 21:48 Acetaminophen (Tylenol Extra Strength) 1,000 mg PO Q8H PRN PRN Reason: Severe Pain Stop: 02/13/19 21:48 Al Hydrox/Mg Hydrox/Simethicone (Maalox) 30 ml PO Q4HR PRN PRN Reason: GI DISTRESS Stop: 02/13/19 21:36 Aspirin (Ecotrin) 81 mg PO DAILY YARITZA Stop: 02/14/19 08:59 Last Admin: 12/21/18 09:16 Dose: 81 mg Docusate Sodium (Colace) 250 mg PO DAILY YARITZA Stop: 02/14/19 08:59 Last Admin: 12/21/18 09:17 Dose: 250 mg Donepezil HCl (Aricept) 10 mg PO HS [facility] Stop: 02/14/19 20:59 Last Admin: 12/20/18 21:08 Dose: 10 mg Famotidine (Pepcid) 40 mg PO DAILY [facility] Stop: 02/14/19 08:59 Last Admin: 12/21/18 09:17 Dose: 40 mg Hydrochlorothiazide (Hctz) 25 mg PO DAILY [facility] Stop: 02/14/19 08:59 Last Admin: 12/20/18 09:09 Dose: Not Given Levofloxacin (Levaquin) 250 mg PO DAILY [facility] Stop: 02/14/19 13:44 Last Admin: 12/21/18 09:17 Dose: 250 mg Lorazepam (Ativan) 0.5 mg PO Q4HR PRN; Protocol PRN Reason: Anxiety Stop: 01/14/19 21:36 Last Admin: 12/17/18 17:51 Dose: 0.5 mg Magnesium Hydroxide (Milk Of Magnesia) 30 ml PO HS PRN PRN Reason: Constipation Memantine (Namenda) 10 mg PO BID [facility] Stop: 02/14/19 08:59 Last Admin: 12/21/18 09:17 Dose: 10 mg Multivitamins/Vitamin C (Theragran) 1 tab PO DAILY [facility] Stop: 02/14/19 08:59 Last Admin: 12/21/18 09:17 Dose: 1 tab Quetiapine Fumarate (Seroquel) 25 mg PO HS [facility]; Protocol Stop: 02/14/19 20:59 Last Admin: 12/20/18 21:08 Dose: 25 mg Zolpidem Tartrate (Ambien) 5 mg PO HS PRN PRN Reason: Insomnia Stop: 02/13/19 21:36 Last Admin: 12/20/18 21:08 Dose: 5 mg General: weak, demented, NAD HEENT: NC/AT, PERRLA Neck: Supple, No JVD Lungs: CTAB Cardiovascular: RRR, Normal S1, Normal S2 Abdomen: soft, non-tender, non-distended Internal Medicine Assmt/Plan - Assessment Assessment: Dementia Psychosis HTN OA GERD - Plan Plan: Continue current treatment plan. Monitor Labs.Continue current medications Continue to monitor VS Monitor Diet/Nutritional support. Psych management per Psychiatry. Pain Management. PT/OT prn Safety precaution, Fall precaution, frequent nursing round. Supportive care. Continue collaborating with consulting specialists, case management and nursing team. Nutritional Asmnt/Malnutr-PDOC - Dietary Evaluation Malnutrition Findings (Please click <Entered> for more info): Nutritional Asmnt/Malnutrition Start: 12/18/18 15: 13 Text: Status: Complete Freq: Protocol: Document 12/18/18 15:13 CHRIS (Rec: 12/18/18 15:18 CHRIS [id number]) Nutritional Asmnt/Malnutrition Patient General Information Nutritional Screening Moderate Risk Diagnosis Psychosis NOS Pertinent Medical Hx/Surgical Hx HTN, PUD/GERD, Dementia, Alzheimers disease, Chronic anemia, Chronic atrial fibrillation, schizophrenia, vitamin D deficiency, hyperosmolarity, hyponatremia, anorexia, iron deficiency Subjective Information Pt downgraded from moderate risk to low risk d/t meal/diet order tolerance and meeting nutrient needs. Pt is a 88-year-old male from nursing facility admitted on c/o increased agitation. Per Meal/Nutrition Activity Record, Pt PO intake 60% meals x 2 days. HT: 511 WT: 180 LB (81.82 kg) ADJ WT: 77.9 kg BMI: 25.10 (Overweight) GI: WNL, Soft, Flat BM: / x1 I/O: 940/Not Noted Skin: WNL, Intact Mp: 15 Diet Order: Mechanical Soft Estimated Energy Needs: ( Overweight, ADJ BW) 0839-8043 kcals (20-25 kcals/ kg) 62-70 g Pro (0.8-0.9 g/kg) 0045-8208 ml (25-30 ml/kg) Pt is eating 60% of meals Per Meal/Nutrition Activity Record . Dietary is currently providing an estimated 2364 kcals and 117 gm Pro, per Pt PO intake this is providing an estimated 1418 kcals and 70 gm Pro to meet 90% kcal and 100+% Pro needs- adequate. Current Diet Order/ Nutrition Support Mechanical Soft Pertinent Medications Maalox (PRN), Colace, Pepcid, MOM (PRN), Theragran Pertinent Labs 12/15: Hgb/Hct 12.6/37.5, Na 128, Cl 92, Glucose 110, Alb 3 .8 Nutritional Hx/Data Height 5 ft 11 in Height (Calculated Centimeters) 180.3 Current Weight (lbs) 180 lb Weight (Calculated Kilograms) 81.6 Weight (Calculated Grams) 44135.6 [place] Body Weight 75.3 kg % [place] Body Weight 108 Body Mass Index (BMI) 25.1 Weight Status Overweight GI Symptoms GI Symptoms None Last BM 12/18 x1 Skin Integrity/Comment: WNL, Intact Mp: 15 Current %PO Fair (50-74%) Estimated Nutritional Goals BEE in Kcals: Adj wt of IBW Calories/Kcals/Kg 20-25 Kcals Calculated 3129-5634 Protein: Adj wt of IBW Protein g/k.8-0.9 Protein Calculated 62-70 Fluid: ml 4252-9312 ml (25-30 ml/kg) Nutritional Problem No current Nutrition Prob Problem N/A Etiology N/A Signs/Symptoms: N/A Malnutrition Related to Morbid Obesity Malnutrition related to morbid obesity No Intervention/Recommendation Comments 1.Continue with mechanical soft diet as ordered. Expected Outcomes/Goals Expected Outcomes/Goals 1.PO intake to continue to meet 75% of nutritional needs. 2.Monitor PO intake, wt, nutrition related labs, and skin integrity. 3.F/U as low risk in 7 days,
--- NOTE | 2018-12-21 20:11 | Progress Notes ---
DATE: SUBJECTIVE: Chart was reviewed and the patient interviewed and discussed the patient's condition with the staff and reviewed records and labs. The patient is still anxious and is still in irritable mood. The patient also is still confused. The patient also is focused on "going home," but he is still unable to provide with any safe plan for self-care. ASSESSMENT: The patient is still confused and agitated. TREATMENT PLAN: Continue to monitor behavior and condition closely. Also, continue adjusting psychotropic medications and work on behavioral modification. [facility]# [id number]
--- NOTE | 2018-12-22 08:05 | Progress Notes ---
DATE: SUBJECTIVE: Chart reviewed and the patient interviewed. Also discussed the patient's condition with the staff and reviewed records and labs. "I am not sick." The patient is still anxious and in irritable mood. The patient also wants to be left alone and stays by himself most of the time, but at the same time the patient is trying to interact slightly more. The patient also has episodes of anger and irritability, but minimal interaction with others and decreased behavioral problems. The patient also has been compliant with taking his medications with no side effects of medications. MENTAL STATUS EXAMINATION: The patient is restless and anxious and in irritable mood. Cooperative, but guarded. TREATMENT PLAN: We will continue to monitor his behavior and his condition closely. Also, encouraged the patient to get out of his room to end of his isolation more. At the same time, we will continue Seroquel 25 mg at bedtime and we will continue Aricept and Namenda and we will continue to follow up closely. [facility]# [id number]
[2018-12-22] MEDS: Multivitamin Tab PO SCH (08:14)
[2018-12-23] MEDS: Multivitamin Tab PO SCH (09:21)
--- NOTE | 2018-12-23 10:37 | Internal Medicine Prog Note ---
Internal Medicine Subjective - Subjective Service Date: 12/23/18 Patient is:: awake, verbal, agitated Per staff patient has:: no adverse event, no episodes of fall Internal Medicine Objective - Results Result Diagrams: 12/15/18 18:57 12/15/18 18:57 Recent Labs: Laboratory Last Values WBC 4.7 Th/cmm (4.8-10.8) L 12/15/18 18:57 RBC 3.98 Mil/cmm (3.80-5.80) 12/15/18 18:57 Hgb 12.6 gm/dL (12-16) 12/15/18 18:57 Hct 37.5 % (41.0-60) L 12/15/18 18:57 MCV 94.3 fl (80-99) 12/15/18 18:57 MCH 31.7 pg (27.0-31.0) H 12/15/18 18:57 MCHC Differential 33.6 pg (28.0-36.0) 12/15/18 18:57 RDW 13.9 % (11.5-20.0) 12/15/18 18:57 Plt Count 224 Th/cmm (150-400) 12/15/18 18:57 MPV 5.8 fl 12/15/18 18:57 Neutrophils % 64.1 % (40.0-80.0) 12/15/18 18:57 Lymphocytes % 25.5 % (20.0-50.0) 12/15/18 18:57 Monocytes % 8.8 % (2.0-10.0) 12/15/18 18:57 Eosinophils % 1.4 % (0.0-5.0) 12/15/18 18:57 Basophils % 0.2 % (0.0-2.0) 12/15/18 18:57 PT 10.9 SECONDS (9.5-11.5) 12/15/18 18:57 INR 1.05 (0.5-1.4) 12/15/18 18:57 PTT (Actin FS) 29.4 SECONDS (26.0-38.0) 12/15/18 18:57 Sodium 128 mEq/L (136-145) L 12/15/18 18:57 Potassium 3.7 mEq/L (3.5-5.1) 12/15/18 18:57 Chloride 92 mEq/L (98-107) L 12/15/18 18:57 Carbon Dioxide 30.7 mEq/L (21.0-31.0) 12/15/18 18:57 Anion Gap 9.0 (7.0-16.0) 12/15/18 18:57 BUN 15 mg/dL (7-25) 12/15/18 18:57 Creatinine 0.9 mg/dL (0.7-1.3) 12/15/18 18:57 Est GFR ( Amer) TNP 12/15/18 18:57 Est GFR (Non-Af Amer) TNP 12/15/18 18:57 BUN/Creatinine Ratio 16.7 12/15/18 18:57 Glucose 110 mg/dL (70-105) H 12/15/18 18:57 Calcium 9.3 mg/dL (8.6-10.3) 12/15/18 18:57 Total Bilirubin 0.7 mg/dL (0.3-1.0) 12/15/18 18:57 AST 13 U/L (13-39) 12/15/18 18:57 ALT 6 U/L (7-52) L 12/15/18 18:57 Alkaline Phosphatase 74 U/L (34-104) 12/15/18 18:57 Troponin I 0.03 ng/mL (0.01-0.05) 12/15/18 18:57 Total Protein 6.6 gm/dL (6.0-8.3) 12/15/18 18:57 Albumin 3.8 gm/dL (4.2-5.5) L 12/15/18 18:57 Globulin 2.8 gm/dL 12/15/18 18:57 Albumin/Globulin Ratio 1.4 (1.0-1.8) 12/15/18 18:57 Triglycerides 54 mg/dL (<150) 12/15/18 18:57 Cholesterol 120 mg/dL (<200) 12/15/18 18:57 LDL Cholesterol Direct 63 mg/dL (75-193) L 12/15/18 18:57 HDL Cholesterol 55 mg/dL (23-92) 12/15/18 18:57 Urine Source CLEAN C 12/15/18 13:45 Urine Color YELLOW 12/15/18 13:45 Urine Clarity CLOUDY (CLEAR) 12/15/18 13:45 Urine pH 5.5 (4.6 - 8.0) 12/15/18 13:45 Ur Specific [place] 1.025 (1.005-1.030) 12/15/18 13:45 Urine Protein NEGATIVE mg/dL (NEGATIVE) 12/15/18 13:45 Urine Glucose (UA) NEGATIVE mg/dL (NEGATIVE) 12/15/18 13:45 Urine Ketones NEGATIVE mg/dL (NEGATIVE) 12/15/18 13:45 Urine Blood TRACE (NEGATIVE) 12/15/18 13:45 Urine Nitrate POSITIVE (NEGATIVE) H 12/15/18 13:45 Urine Bilirubin NEGATIVE (NEGATIVE) 12/15/18 13:45 Urine Urobilinogen 0.2 E.U./dL (0.2 - 1.0) 12/15/18 13:45 Ur Leukocyte Esterase SMALL (NEGATIVE) H 12/15/18 13:45 Urine RBC 2-5 /hpf (0-5) H 12/15/18 13:45 Urine WBC 6-10 /hpf (0-5) 12/15/18 13:45 Ur Epithelial Cells FEW /lpf (FEW) 12/15/18 13:45 Urine Bacteria 4+ /hpf (NONE SEEN) H 12/15/18 13:45 - Physical Exam Vitals and I&O: Vital Signs Temp 97.8 F 12/23/18 05:20 Pulse 57 12/23/18 05:20 Resp 18 12/23/18 05:20 BP 118/74 12/23/18 09:20 Pulse Ox 97 12/23/18 05:20 Intake & Output 12/22/18 12/23/18 12/23/18 18:59 06:59 18:59 Intake Total 800 240 Balance 800 240 Intake: Oral 800 240 Other: # Voids 4 2 # Bowel Movements 1 Active Medications: Current Medications Acetaminophen (Tylenol) 650 mg PO Q6H PRN PRN Reason: MODERATE PAIN Stop: 02/13/19 21:48 Acetaminophen (Tylenol Extra Strength) 500 mg PO Q4HR PRN PRN Reason: MILD PAIN Stop: 02/13/19 21:48 Acetaminophen (Tylenol Extra Strength) 1,000 mg PO Q8H PRN PRN Reason: Severe Pain Stop: 02/13/19 21:48 Al Hydrox/Mg Hydrox/Simethicone (Maalox) 30 ml PO Q4HR PRN PRN Reason: GI DISTRESS Stop: 02/13/19 21:36 Aspirin (Ecotrin) 81 mg PO DAILY [facility] Stop: 02/14/19 08:59 Last Admin: 12/23/18 09:20 Dose: 81 mg Docusate Sodium (Colace) 250 mg PO DAILY [facility] Stop: 02/14/19 08:59 Last Admin: 12/23/18 09:21 Dose: Not Given Donepezil HCl (Aricept) 10 mg PO HS [facility] Stop: 02/14/19 20:59 Last Admin: 12/22/18 20:41 Dose: 10 mg Famotidine (Pepcid) 40 mg PO DAILY [facility] Stop: 02/14/19 08:59 Last Admin: 12/23/18 09:19 Dose: 40 mg Hydrochlorothiazide (Hctz) 25 mg PO DAILY [facility] Stop: 02/14/19 08:59 Last Admin: 12/23/18 09:20 Dose: 25 mg Levofloxacin (Levaquin) 250 mg PO DAILY [facility] Stop: 02/14/19 13:44 Last Admin: 12/23/18 09:20 Dose: 250 mg Lorazepam (Ativan) 0.5 mg PO Q4HR PRN; Protocol PRN Reason: Anxiety Stop: 01/14/19 21:36 Last Admin: 12/21/18 23:30 Dose: 0.5 mg Magnesium Hydroxide (Milk Of Magnesia) 30 ml PO HS PRN PRN Reason: Constipation Memantine (Namenda) 10 mg PO BID [facility] Stop: 02/14/19 08:59 Last Admin: 12/23/18 09:20 Dose: 10 mg Multivitamins/Vitamin C (Theragran) 1 tab PO DAILY [facility] Stop: 02/14/19 08:59 Last Admin: 12/23/18 09:21 Dose: 1 tab Quetiapine Fumarate (Seroquel) 25 mg PO HS [facility]; Protocol Stop: 02/14/19 20:59 Last Admin: 12/22/18 20:41 Dose: 25 mg Zolpidem Tartrate (Ambien) 5 mg PO HS PRN PRN Reason: Insomnia Stop: 02/13/19 21:36 Last Admin: 12/21/18 20:59 Dose: 5 mg General: weak, demented, NAD HEENT: NC/AT, PERRLA Neck: Supple, No JVD Lungs: CTAB Cardiovascular: RRR, Normal S1, Normal S2 Abdomen: soft, non-tender, non-distended Internal Medicine Assmt/Plan - Assessment Assessment: Dementia Psychosis HTN OA GERD - Plan Plan: Continue current treatment plan. Monitor Labs.Continue current medications Continue to monitor VS Monitor Diet/Nutritional support. Psych management per Psychiatry. Pain Management. PT/OT prn Safety precaution, Fall precaution, frequent nursing round. Supportive care. Continue collaborating with consulting specialists, case management and nursing team Nutritional Asmnt/Malnutr-PDOC - Dietary Evaluation Malnutrition Findings (Please click <Entered> for more info): Nutritional Asmnt/Malnutrition Start: 12/18/18 15: 13 Text: Status: Complete Freq: Protocol: Document 12/18/18 15:13 CHRIS (Rec: 12/18/18 15:18 CHRIS [email or web address]) Nutritional Asmnt/Malnutrition Patient General Information Nutritional Screening Moderate Risk Diagnosis Psychosis NOS Pertinent Medical Hx/Surgical Hx HTN, PUD/GERD, Dementia, Alzheimers disease, Chronic anemia, Chronic atrial fibrillation, schizophrenia, vitamin D deficiency, hyperosmolarity, hyponatremia, anorexia, iron deficiency Subjective Information Pt downgraded from moderate risk to low risk d/t meal/diet order tolerance and meeting nutrient needs. Pt is a 88-year-old male from nursing facility admitted on c/o increased agitation. Per Meal/Nutrition Activity Record, Pt PO intake 60% meals x 2 days. HT: 511 WT: 180 LB (81.82 kg) ADJ WT: 77.9 kg BMI: 25.10 (Overweight) GI: WNL, Soft, Flat BM: 8/ x1 I/O: 940/Not Noted Skin: WNL, Intact Mp: 15 Diet Order: Mechanical Soft Estimated Energy Needs: ( Overweight, ADJ BW) 0997-0981 kcals (20-25 kcals/ kg) 62-70 g Pro (0.8-0.9 g/kg) 1048-1991 ml (25-30 ml/kg) Pt is eating 60% of meals Per Meal/Nutrition Activity Record . Dietary is currently providing an estimated 2364 kcals and 117 gm Pro, per Pt PO intake this is providing an estimated 1418 kcals and 70 gm Pro to meet 90% kcal and 100+% Pro needs- adequate. Current Diet Order/ Nutrition Support Mechanical Soft Pertinent Medications Maalox (PRN), Colace, Pepcid, MOM (PRN), Theragran Pertinent Labs 12/15: Hgb/Hct 12.6/37.5, Na 128, Cl 92, Glucose 110, Alb 3 .8 Nutritional Hx/Data Height 5 ft 11 in Height (Calculated Centimeters) 180.3 Current Weight (lbs) 180 lb Weight (Calculated Kilograms) 81.6 Weight (Calculated Grams) 57188.6 [place] Body Weight 75.3 kg % [place] Body Weight 108 Body Mass Index (BMI) 25.1 Weight Status Overweight GI Symptoms GI Symptoms None Last BM 12/18 x1 Skin Integrity/Comment: WNL, Intact Mp: 15 Current %PO Fair (50-74%) Estimated Nutritional Goals BEE in Kcals: Adj wt of IBW Calories/Kcals/Kg 20-25 Kcals Calculated 2718-8464 Protein: Adj wt of IBW Protein g/k.8-0.9 Protein Calculated 62-70 Fluid: ml 1938-0708 ml (25-30 ml/kg) Nutritional Problem No current Nutrition Prob Problem N/A Etiology N/A Signs/Symptoms: N/A Malnutrition Related to Morbid Obesity Malnutrition related to morbid obesity No Intervention/Recommendation Comments 1.Continue with mechanical soft diet as ordered. Expected Outcomes/Goals Expected Outcomes/Goals 1.PO intake to continue to meet 75% of nutritional needs. 2.Monitor PO intake, wt, nutrition related labs, and skin integrity. 3.F/U as low risk in 7 days,
[2018-12-24] MEDS: Multivitamin Tab PO SCH (08:25)
--- NOTE | 2018-12-24 13:30 | Internal Medicine Prog Note ---
Internal Medicine Subjective - Subjective Service Date: 12/24/18 Patient seen and examined:: chart reviewed Patient is:: awake, verbal, agitated Patient Complaints of:: other (Psychosis.) Per staff patient has:: no adverse event, no episodes of fall Internal Medicine Objective - Results Result Diagrams: 12/15/18 18:57 12/15/18 18:57 Recent Labs: Laboratory Last Values WBC 4.7 Th/cmm (4.8-10.8) L 12/15/18 18:57 RBC 3.98 Mil/cmm (3.80-5.80) 12/15/18 18:57 Hgb 12.6 gm/dL (12-16) 12/15/18 18:57 Hct 37.5 % (41.0-60) L 12/15/18 18:57 MCV 94.3 fl (80-99) 12/15/18 18:57 MCH 31.7 pg (27.0-31.0) H 12/15/18 18:57 MCHC Differential 33.6 pg (28.0-36.0) 12/15/18 18:57 RDW 13.9 % (11.5-20.0) 12/15/18 18:57 Plt Count 224 Th/cmm (150-400) 12/15/18 18:57 MPV 5.8 fl 12/15/18 18:57 Neutrophils % 64.1 % (40.0-80.0) 12/15/18 18:57 Lymphocytes % 25.5 % (20.0-50.0) 12/15/18 18:57 Monocytes % 8.8 % (2.0-10.0) 12/15/18 18:57 Eosinophils % 1.4 % (0.0-5.0) 12/15/18 18:57 Basophils % 0.2 % (0.0-2.0) 12/15/18 18:57 PT 10.9 SECONDS (9.5-11.5) 12/15/18 18:57 INR 1.05 (0.5-1.4) 12/15/18 18:57 PTT (Actin FS) 29.4 SECONDS (26.0-38.0) 12/15/18 18:57 Sodium 128 mEq/L (136-145) L 12/15/18 18:57 Potassium 3.7 mEq/L (3.5-5.1) 12/15/18 18:57 Chloride 92 mEq/L (98-107) L 12/15/18 18:57 Carbon Dioxide 30.7 mEq/L (21.0-31.0) 12/15/18 18:57 Anion Gap 9.0 (7.0-16.0) 12/15/18 18:57 BUN 15 mg/dL (7-25) 12/15/18 18:57 Creatinine 0.9 mg/dL (0.7-1.3) 12/15/18 18:57 Est GFR ( Amer) TNP 12/15/18 18:57 Est GFR (Non-Af Amer) TNP 12/15/18 18:57 BUN/Creatinine Ratio 16.7 12/15/18 18:57 Glucose 110 mg/dL (70-105) H 12/15/18 18:57 Calcium 9.3 mg/dL (8.6-10.3) 12/15/18 18:57 Total Bilirubin 0.7 mg/dL (0.3-1.0) 12/15/18 18:57 AST 13 U/L (13-39) 12/15/18 18:57 ALT 6 U/L (7-52) L 12/15/18 18:57 Alkaline Phosphatase 74 U/L (34-104) 12/15/18 18:57 Troponin I 0.03 ng/mL (0.01-0.05) 12/15/18 18:57 Total Protein 6.6 gm/dL (6.0-8.3) 12/15/18 18:57 Albumin 3.8 gm/dL (4.2-5.5) L 12/15/18 18:57 Globulin 2.8 gm/dL 12/15/18 18:57 Albumin/Globulin Ratio 1.4 (1.0-1.8) 12/15/18 18:57 Triglycerides 54 mg/dL (<150) 12/15/18 18:57 Cholesterol 120 mg/dL (<200) 12/15/18 18:57 LDL Cholesterol Direct 63 mg/dL (75-193) L 12/15/18 18:57 HDL Cholesterol 55 mg/dL (23-92) 12/15/18 18:57 Urine Source CLEAN C 12/15/18 13:45 Urine Color YELLOW 12/15/18 13:45 Urine Clarity CLOUDY (CLEAR) 12/15/18 13:45 Urine pH 5.5 (4.6 - 8.0) 12/15/18 13:45 Ur Specific [place] 1.025 (1.005-1.030) 12/15/18 13:45 Urine Protein NEGATIVE mg/dL (NEGATIVE) 12/15/18 13:45 Urine Glucose (UA) NEGATIVE mg/dL (NEGATIVE) 12/15/18 13:45 Urine Ketones NEGATIVE mg/dL (NEGATIVE) 12/15/18 13:45 Urine Blood TRACE (NEGATIVE) 12/15/18 13:45 Urine Nitrate POSITIVE (NEGATIVE) H 12/15/18 13:45 Urine Bilirubin NEGATIVE (NEGATIVE) 12/15/18 13:45 Urine Urobilinogen 0.2 E.U./dL (0.2 - 1.0) 12/15/18 13:45 Ur Leukocyte Esterase SMALL (NEGATIVE) H 12/15/18 13:45 Urine RBC 2-5 /hpf (0-5) H 12/15/18 13:45 Urine WBC 6-10 /hpf (0-5) 12/15/18 13:45 Ur Epithelial Cells FEW /lpf (FEW) 12/15/18 13:45 Urine Bacteria 4+ /hpf (NONE SEEN) H 12/15/18 13:45 - Physical Exam Vitals and I&O: Vital Signs Temp 97.8 F 12/24/18 06:18 Pulse 68 12/24/18 06:18 Resp 18 12/24/18 06:18 BP 112/69 12/24/18 08:25 Pulse Ox 97 12/24/18 06:18 Intake & Output 12/23/18 12/24/18 12/24/18 18:59 06:59 18:59 Intake Total 800 120 Balance 800 120 Intake: Oral 800 120 Other: # Voids 3 3 # Bowel Movements 1 1 Active Medications: Current Medications Acetaminophen (Tylenol) 650 mg PO Q6H PRN PRN Reason: MODERATE PAIN Stop: 02/13/19 21:48 Acetaminophen (Tylenol Extra Strength) 500 mg PO Q4HR PRN PRN Reason: MILD PAIN Stop: 02/13/19 21:48 Acetaminophen (Tylenol Extra Strength) 1,000 mg PO Q8H PRN PRN Reason: Severe Pain Stop: 02/13/19 21:48 Al Hydrox/Mg Hydrox/Simethicone (Maalox) 30 ml PO Q4HR PRN PRN Reason: GI DISTRESS Stop: 02/13/19 21:36 Aspirin (Ecotrin) 81 mg PO DAILY [facility] Stop: 02/14/19 08:59 Last Admin: 12/24/18 08:26 Dose: 81 mg Docusate Sodium (Colace) 250 mg PO DAILY [facility] Stop: 02/14/19 08:59 Last Admin: 12/24/18 08:25 Dose: Not Given Donepezil HCl (Aricept) 10 mg PO HS [facility] Stop: 02/14/19 20:59 Last Admin: 12/23/18 20:38 Dose: 10 mg Famotidine (Pepcid) 40 mg PO DAILY [facility] Stop: 02/14/19 08:59 Last Admin: 12/24/18 08:26 Dose: 40 mg Hydrochlorothiazide (Hctz) 25 mg PO DAILY [facility] Stop: 02/14/19 08:59 Last Admin: 12/24/18 08:25 Dose: 25 mg Lorazepam (Ativan) 0.5 mg PO Q4HR PRN; Protocol PRN Reason: Anxiety Stop: 01/14/19 21:36 Last Admin: 12/21/18 23:30 Dose: 0.5 mg Magnesium Hydroxide (Milk Of Magnesia) 30 ml PO HS PRN PRN Reason: Constipation Memantine (Namenda) 10 mg PO BID [facility] Stop: 02/14/19 08:59 Last Admin: 12/24/18 08:26 Dose: 10 mg Multivitamins/Vitamin C (Theragran) 1 tab PO DAILY [facility] Stop: 02/14/19 08:59 Last Admin: 12/24/18 08:25 Dose: 1 tab Quetiapine Fumarate (Seroquel) 25 mg PO HS [facility]; Protocol Stop: 02/14/19 20:59 Last Admin: 12/23/18 20:37 Dose: 25 mg Zolpidem Tartrate (Ambien) 5 mg PO HS PRN PRN Reason: Insomnia Stop: 02/13/19 21:36 Last Admin: 12/23/18 20:38 Dose: 5 mg Physical Exam: Patient continues to very agitated, continue monitoring. General: weak, demented, NAD HEENT: NC/AT, PERRLA Neck: Supple, No JVD Lungs: CTAB Cardiovascular: RRR, Normal S1, Normal S2 Abdomen: soft, non-tender, non-distended Extremities: clear Neurological: other (Agitated mood.) Internal Medicine Assmt/Plan - Assessment Assessment: Dementia. Psychosis. Hypertension. Osteoarthritis. Gerd. - Plan Plan: Continuation of care. Monitor Labs. Continue present meds as directed. Monitor vitals, continue Blood pressure meds as directed. Monitor Diet/Nutritional support. Psych management per Psych. Pain Management. PT/OT prn Safety precaution. Supportive care. Fall precaution, frequent nursing rounds, and as needed restraints to prevent fall. Continue collaborating with consulting specialists, case management and nursing team. Will Monitor patient and continue present care management. Nutritional Asmnt/Malnutr-PDOC - Dietary Evaluation Malnutrition Findings (Please click <Entered> for more info): Nutritional Asmnt/Malnutrition Start: 12/18/18 15: 13 Text: Status: Complete Freq: Protocol: Document 12/18/18 15:13 CHRIS (Rec: 12/18/18 15:18 CHRIS [email or web address]) Nutritional Asmnt/Malnutrition Patient General Information Nutritional Screening Moderate Risk Diagnosis Psychosis NOS Pertinent Medical Hx/Surgical Hx HTN, PUD/GERD, Dementia, Alzheimers disease, Chronic anemia, Chronic atrial fibrillation, schizophrenia, vitamin D deficiency, hyperosmolarity, hyponatremia, anorexia, iron deficiency Subjective Information Pt downgraded from moderate risk to low risk d/t meal/diet order tolerance and meeting nutrient needs. Pt is a 88-year-old male from nursing facility admitted on c/o increased agitation. Per Meal/Nutrition Activity Record, Pt PO intake 60% meals x 2 days. HT: 511 WT: 180 LB (81.82 kg) ADJ WT: 77.9 kg BMI: 25.10 (Overweight) GI: WNL, Soft, Flat BM: 8/ x1 I/O: 940/Not Noted Skin: WNL, Intact Mp: 15 Diet Order: Mechanical Soft Estimated Energy Needs: ( Overweight, ADJ BW) 1350-1649 kcals (20-25 kcals/ kg) 62-70 g Pro (0.8-0.9 g/kg) 4295-0538 ml (25-30 ml/kg) Pt is eating 60% of meals Per Meal/Nutrition Activity Record . Dietary is currently providing an estimated 2364 kcals and 117 gm Pro, per Pt PO intake this is providing an estimated 1418 kcals and 70 gm Pro to meet 90% kcal and 100+% Pro needs- adequate. Current Diet Order/ Nutrition Support Mechanical Soft Pertinent Medications Maalox (PRN), Colace, Pepcid, MOM (PRN), Theragran Pertinent Labs 12/15: Hgb/Hct 12.6/37.5, Na 128, Cl 92, Glucose 110, Alb 3 .8 Nutritional Hx/Data Height 1.8 m Height (Calculated Centimeters) 180.3 Current Weight (lbs) 81.647 kg Weight (Calculated Kilograms) 81.6 Weight (Calculated Grams) 42092.6 [place] Body Weight 75.3 kg % [place] Body Weight 108 Body Mass Index (BMI) 25.1 Weight Status Overweight GI Symptoms GI Symptoms None Last BM 12/18 x1 Skin Integrity/Comment: WNL, Intact Mp: 15 Current %PO Fair (50-74%) Estimated Nutritional Goals BEE in Kcals: Adj wt of IBW Calories/Kcals/Kg 20-25 Kcals Calculated 2551-3645 Protein: Adj wt of IBW Protein g/k.8-0.9 Protein Calculated 62-70 Fluid: ml 6162-4935 ml (25-30 ml/kg) Nutritional Problem No current Nutrition Prob Problem N/A Etiology N/A Signs/Symptoms: N/A Malnutrition Related to Morbid Obesity Malnutrition related to morbid obesity No Intervention/Recommendation Comments 1.Continue with mechanical soft diet as ordered. Expected Outcomes/Goals Expected Outcomes/Goals 1.PO intake to continue to meet 75% of nutritional needs. 2.Monitor PO intake, wt, nutrition related labs, and skin integrity. 3.F/U as low risk in 7 days,
--- NOTE | 2018-12-24 20:05 | Discharge Summary ---
DATE OF DISCHARGE: 12/24/2018 FINAL DIAGNOSIS/PRIMARY DIAGNOSIS: Unspecified psychosis. SECONDARY DIAGNOSES: Dementia, moderate to severe, with psychotic features and behavioral disturbances. REASON FOR HOSPITALIZATION: The patient was admitted to the hospital from [facility] because of increased agitation and irritability and the striking out behavior. HOSPITAL COURSE: The patient continued to be in angry and in irritable mood. The patient, in the beginning, was oppositional to staff and continued to be in angry mood, but no striking out behavior. The patient was started on Aricept to 10 mg at this time and also he was given Seroquel 25 mg at bedtime. The patient was refusing to take medications, but at the same time, he was sleeping better and his appetite was improved. The patient was less agitated and less irritable. The patient was discharged from the hospital back to [facility]. PHYSICAL EXAMINATION: The patient was basically within normal and the patient had no major medical problems while in the hospital. AFTER DISCHARGE PLANS: The patient discharged from the hospital and returned to [facility] with plans for follow him up there. EXPECTED OUTCOME AFTER DISCHARGE: Fair if the patient continues to follow up with discharge plans and work on his behavior modification. JOB# [id number]
--- NOTE | 2018-12-25 01:40 | Progress Notes ---
DATE: 12/23/2018 SUBJECTIVE: Chart was reviewed and the patient interviewed. Also discussed the patient's condition with the staff and reviewed records and labs. The patient is still in irritable mood, and he is still withdrawn and guarded. The patient is interacting minimally with peers and with others. He also seems to be suspicious and paranoid, but at the same time, he wants to be left alone. The patient is more compliant with taking his medications and seems to be slightly easier to follow directions. Otherwise, the patient is compliant with taking medications with no side effects. ASSESSMENT: The patient is still irritable but seems to be easier to redirect him and more cooperative. TREATMENT PLAN: Continue to monitor his behavior and his condition closely. Also, continue adjusting psychotropic medications and work on discharge plans. Also, continue Seroquel 25 mg at bedtime as well as Namenda and Aricept. JOB# [id number]
== END 2018-12-24 16:53 | DRG 885 ==
LOC: ER 18:21 → GERO 20:00
PROVIDERS: ADMIT Psychiatry & Neurology Psychiatry; ATTEND Psychiatry & Neurology Psychiatry
DX: F29 Unspecified psychosis not due to a substance or known physiological condition (principal); N39.0 Urinary tract infection, site not specified; E87.1 Hypo-osmolality and hyponatremia; F02.81 Dementia in other diseases classified elsewhere, unspecified severity, with behavioral disturbance; I10 Essential (primary) hypertension; K21.9 Gastro-esophageal reflux disease without esophagitis; G30.9 Alzheimer's disease, unspecified; I48.2 Chronic atrial fibrillation; F20.9 Schizophrenia, unspecified; R73.9 Hyperglycemia, unspecified; G89.4 Chronic pain syndrome; M19.90 Unspecified osteoarthritis, unspecified site; Z87.11 Personal history of peptic ulcer disease; Z90.49 Acquired absence of other specified parts of digestive tract
CPT/HCPCS: 36415-UA; 71045-TC; 80053-TC; 80061-TC; 81001-TC; 83036-90; 84484-TC; 85025-TC; 85610-TC; 87086-90; 93005; Z7610